=== PATIENT | female | born 1980 | race African-American/Black ===

== ENCOUNTER 2024-11-14 13:38 | Outpatient (AMB) | payer OTHER, SELFPAY ==
--- NOTE | 2024-11-14 13:42 | A.OFFVIS_ITS ---
Vital Signs 11/14/24 13:45 Height 5 ft 6 in Weight 164 lb 7.437 oz BMI 26.5 BP 136/80 Blood Pressure Location Lt brachial Position Sitting Pulse 90 Pulse Source Pulse Oximeter Pulse Oximetry (%) 99 Oxygen Delivery Method Room Air Intake Visit Reasons: RA Intake Note: Patient presents for follow up on RA. Allergies No Known Allergies Allergy (Verified 11/14/24 13:46) HPI HPI RA: Details: SHe is doing well. No recent infections. [facility] Medical History (Updated 11/15/24 @ 21:47 by Chico Acosta MD) Rheumatoid arthritis Surgical History (Updated 11/14/24 @ 13:50 by Rina Abad CMA) No pertinent past surgical history Social History (Updated 11/14/24 @ 13:50 by Rina Abad CMA) Alcohol intake: never Patient Tobacco Use Status: Never used Tobacco Review of Systems Const All systems reviewed & are unremarkable except as noted in HPI and below Physical Exam Vital Signs: Last Vital Signs Pulse 90 11/14/24 13:45 BP 136/80 11/14/24 13:45 Pulse Ox 99 11/14/24 13:45 Oxygen Delivery Method Room Air 11/14/24 13:45 BMI result Body Mass Index 26.5 Const Other: General: Comfortable CVS: RRR Respiratory: clear to auscultation bilaterally. Good respiratory effort Skin: No lesions seen MSK:No tendernes or synovitis present. Good ROM of UE and LE. Assessment & Plan Assessment & Plan (1) Rheumatoid arthritis: Comment: controlled on monotherapy with methotrexate Code(s): M06.9 - Rheumatoid arthritis, unspecified Category: Medical Qualifiers: Rheumatoid arthritis location: multiple sites Rheumatoid factor presence: unspecified presence Qualified Code(s): M06.9 - Rheumatoid arthritis, unspecified Plan: Labs for disease and drug monitoring on high-risk medication ordered. Patient has labs done with neurology every 3 months for drug monitoring and requested lab requisition to have them done at the same time After lab results are back, I will send prescription for methotrexate 20 mg once weekly Continue folic acid 1 mg daily [facility]ing [facility] Return to clinic in 3 months (2) Other press tender long goods (current) drug therapy: Code(s): Z79.899 - Other jail (current) drug therapy Category: Medical Plan: See above Orders: Orders Hepatitis B,C Profile 11/14/24 Z79.899 - Other jail (current) drug therapy T Spot TB 11/14/24 Z79.899 - Other press tender long goods (current) drug therapy Alanine Aminotransferase 11/14/24 Z79.60 - termite control service representative (current) use of unspecified immunomodulators and immunosuppressants Complete Blood Count Auto Diff 11/14/24 Z79.60 - care home (current) use of unspecified immunomodulators and immunosuppressants Creatinine 11/14/24 Z79.60 - termite control service representative (current) use of unspecified immunomodulators and immunosuppressants Alanine Aminotransferase 11/14/24 Z79.60 - termite control service representative (current) use of unspecified immunomodulators and immunosuppressants Alanine Aminotransferase 02/12/25 Z79.60 - care home (current) use of unspecified immunomodulators and immunosuppressants Alanine Aminotransferase 05/13/25 Z79.60 - care home (current) use of unspecified immunomodulators and immunosuppressants Alanine Aminotransferase 08/11/25 Z79.60 - termite control service representative (current) use of unspecified immunomodulators and immunosuppressants Alanine Aminotransferase 05/08/26 Z79.60 - termite control service representative (current) use of unspecified immunomodulators and immunosuppressants Alanine Aminotransferase 08/06/26 Z79.60 - care home (current) use of unspecified immunomodulators and immunosuppressants Erythrocyte Sedimentation Rate 02/12/25 Z79.899 - Other jail (current) drug therapy Erythrocyte Sedimentation Rate 05/13/25 Z79.899 - Other jail (current) drug therapy Erythrocyte Sedimentation Rate 11/09/25 Z79.899 - Other jail (current) drug therapy Erythrocyte Sedimentation Rate 02/07/26 Z79.899 - Other press tender long goods (current) drug therapy Erythrocyte Sedimentation Rate 05/08/26 Z79.899 - Other press tender long goods (current) drug therapy Erythrocyte Sedimentation Rate 08/06/26 Z79.899 - Other press tender long goods (current) drug therapy Creatinine 11/14/24 Z79.60 - termite control service representative (current) use of unspecified immunomodulators and immunosuppressants Creatinine 08/11/25 Z79.60 - care home (current) use of unspecified immunomodulators and immunosuppressants Creatinine 11/09/25 Z79.60 - termite control service representative (current) use of unspecified immunomodulators and immunosuppressants Creatinine 05/08/26 Z79.60 - care home (current) use of unspecified immunomodulators and immunosuppressants Creatinine 08/06/26 Z79.60 - care home (current) use of unspecified immunomodulators and immunosuppressants Complete Blood Count Auto Diff 02/12/25 Z79.60 - termite control service representative (current) use of unspecified immunomodulators and immunosuppressants Complete Blood Count Auto Diff 05/13/25 Z79.60 - termite control service representative (current) use of unspecified immunomodulators and immunosuppressants Complete Blood Count Auto Diff 05/08/26 Z79.60 - termite control service representative (current) use of unspecified immunomodulators and immunosuppressants Complete Blood Count Auto Diff 08/06/26 Z79.60 - termite control service representative (current) use of unspecified immunomodulators and immunosuppressants C Reactive Protein 11/14/24 Z79.899 - Other jail (current) drug therapy C Reactive Protein 02/12/25 Z79.899 - Other press tender long goods (current) drug therapy C Reactive Protein 08/11/25 Z79.899 - Other jail (current) drug therapy C Reactive Protein 02/07/26 Z79.899 - Other press tender long goods (current) drug therapy C Reactive Protein 08/06/26 Z79.899 - Other press tender long goods (current) drug therapy Aspartate Amino Transferase 11/14/24 Z79.60 - termite control service representative (current) use of unspecified immunomodulators and immunosuppressants Aspartate Amino Transferase 02/12/25 Z79.60 - care home (current) use of unspecified immunomodulators and immunosuppressants Aspartate Amino Transferase 11/09/25 Z79.60 - care home (current) use of un specified immunomodulators and immunosuppressants Aspartate Amino Transferase 02/07/26 Z79.60 - termite control service representative (current) use of unspecified immunomodulators and immunosuppressants Erythrocyte Sedimentation Rate 11/14/24 Z79.899 - Other jail (current) drug therapy C Reactive Protein 11/14/24 Z79.899 - Other jail (current) drug therapy Aspartate Amino Transferase 11/14/24 Z79.60 - care home (current) use of unspecified immunomodulators and immunosuppressants Alanine Aminotransferase 11/09/25 Z79.60 - care home (current) use of unspecified immunomodulators and immunosuppressants Alanine Aminotransferase 02/07/26 Z79.60 - care home (current) use of unspecified immunomodulators and immunosuppressants Erythrocyte Sedimentation Rate 11/14/24 Z79.899 - Other jail (current) drug therapy Erythrocyte Sedimentation Rate 08/11/25 Z79.899 - Other press tender long goods (current) drug therapy Creatinine 02/12/25 Z79.60 - termite control service representative (current) use of unspecified i mmunomodulators and immunosuppressants Creatinine 05/13/25 Z79.60 - care home (current) use of unspecified immunomodulators and immunosuppressants Creatinine 02/07/26 Z79.60 - care home (current) use of unspecified immunomodulators and immunosuppressants Complete Blood Count Auto Diff 11/14/24 Z79.60 - termite control service representative (current) use of unspecified immunomodulators and immunosuppressants Complete Blood Count Auto Diff 08/11/25 Z79.60 - termite control service representative (current) use of unspecified immunomodulators and immunosuppressants Complete Blood Count Auto Diff 11/09/25 Z79.60 - termite control service representative (current) use of unspecified immunomodulators and immunosuppressants Complete Blood Count Auto Diff 02/07/26 Z79.60 - care home (current) use of unspecified immunomodulators and immunosuppressants C Reactive Protein 05/13/25 Z79.899 - Other press tender long goods (current) drug therapy C Reactive Protein 11/09/25 Z79.899 - Other press tender long goods (current) drug therapy C Reactive Protein 05/08/26 Z79.899 - Other press tender long goods (current) drug therapy Aspartate Amino Transferase 05/13/25 Z79.60 - care home (current) use of unspecified immunomodulators and immunosuppressants Aspartate Amino Transferase 08/11/25 Z79.60 - termite control service representative (current) use of unspecified immunomodulators and immunosuppressants Aspartate Amino Transferase 05/08/26 Z79.60 - termite control service representative (current) use of unspecified immunomodulators and immunosuppressants Aspartate Amino Transferase 08/06/26 Z79.60 - care home (current) use of uns pecified immunomodulators and immunosuppressants Medications: New folic acid 1 mg PO DAILY 90 tabs 3RF Coding Level of Care Code Est Pt Level 4 (71108) Complex EM visit Add On G2211 Diagnoses Rheumatoid arthritis involving multiple sites, unspecified whether rheumatoid factor present M06.9 Rheumatoid arthritis location: multiple sites Rheumatoid factor presence: unspecified presence Other press tender long goods (current) drug therapy Z79.899
--- NOTE | 2024-11-14 13:42 | MHC.OFFVIS ---
Vital Signs 11/14/24 13:45 Height 5 ft 6 in Weight 164 lb 7.437 oz BMI 26.5 BP 136/80 Blood Pressure Location Lt brachial Position Sitting Pulse 90 Pulse Source Pulse Oximeter Pulse Oximetry (%) 99 Oxygen Delivery Method Room Air Intake Visit Reasons: RA Intake Note: Patient presents for follow up on RA. Allergies No Known Allergies Allergy (Verified 11/14/24 13:46) HPI HPI RA: Details: SHe is doing well. No recent infections. [facility] Medical History (Updated 11/15/24 @ 21:47 by Chico Acosta MD) Rheumatoid arthritis Surgical History (Updated 11/14/24 @ 13:50 by Rina Abad CMA) No pertinent past surgical history Social History (Updated 11/14/24 @ 13:50 by Rina Abad CMA) Alcohol intake: never Patient Tobacco Use Status: Never used Tobacco Review of Systems Const All systems reviewed & are unremarkable except as noted in HPI and below Physical Exam Vital Signs: Last Vital Signs Pulse 90 11/14/24 13:45 BP 136/80 11/14/24 13:45 Pulse Ox 99 11/14/24 13:45 Oxygen Delivery Method Room Air 11/14/24 13:45 BMI result Body Mass Index 26.5 Const Other: General: Comfortable CVS: RRR Respiratory: clear to auscultation bilaterally. Good respiratory effort Skin: No lesions seen MSK:No tendernes or synovitis present. Good ROM of UE and LE. Assessment & Plan Assessment & Plan (1) Rheumatoid arthritis: Comment: controlled on monotherapy with methotrexate Code(s): M06.9 - Rheumatoid arthritis, unspecified Category: Medical Qualifiers: Rheumatoid arthritis location: multiple sites Rheumatoid factor presence: unspecified presence Qualified Code(s): M06.9 - Rheumatoid arthritis, unspecified Plan: Labs for disease and drug monitoring on high-risk medication ordered. Patient has labs done with neurology every 3 months for drug monitoring and requested lab requisition to have them done at the same time After lab results are back, I will send prescription for methotrexate 20 mg once weekly Continue folic acid 1 mg daily [facility]ing [facility] Return to clinic in 3 months (2) Other long term care phlebotomist (current) drug therapy: Code(s): Z79.899 - Other senior care (current) drug therapy Category: Medical Plan: See above Orders: Orders Hepatitis B,C Profile 11/14/24 Z79.899 - Other senior care (current) drug therapy T Spot TB 11/14/24 Z79.899 - Other long term care phlebotomist (current) drug therapy Alanine Aminotransferase 11/14/24 Z79.60 - salvage determiner (current) use of unspecified immunomodulators and immunosuppressants Complete Blood Count Auto Diff 11/14/24 Z79.60 - custodial (current) use of unspecified immunomodulators and immunosuppressants Creatinine 11/14/24 Z79.60 - salvage determiner (current) use of unspecified immunomodulators and immunosuppressants Alanine Aminotransferase 11/14/24 Z79.60 - salvage determiner (current) use of unspecified immunomodulators and immunosuppressants Alanine Aminotransferase 02/12/25 Z79.60 - custodial (current) use of unspecified immunomodulators and immunosuppressants Alanine Aminotransferase 05/13/25 Z79.60 - custodial (current) use of unspecified immunomodulators and immunosuppressants Alanine Aminotransferase 08/11/25 Z79.60 - salvage determiner (current) use of unspecified immunomodulators and immunosuppressants Alanine Aminotransferase 05/08/26 Z79.60 - salvage determiner (current) use of unspecified immunomodulators and immunosuppressants Alanine Aminotransferase 08/06/26 Z79.60 - custodial (current) use of unspecified immunomodulators and immunosuppressants Erythrocyte Sedimentation Rate 02/12/25 Z79.899 - Other senior care (current) drug therapy Erythrocyte Sedimentation Rate 05/13/25 Z79.899 - Other senior care (current) drug therapy Erythrocyte Sedimentation Rate 11/09/25 Z79.899 - Other senior care (current) drug therapy Erythrocyte Sedimentation Rate 02/07/26 Z79.899 - Other long term care phlebotomist (current) drug therapy Erythrocyte Sedimentation Rate 05/08/26 Z79.899 - Other long term care phlebotomist (current) drug therapy Erythrocyte Sedimentation Rate 08/06/26 Z79.899 - Other long term care phlebotomist (current) drug therapy Creatinine 11/14/24 Z79.60 - salvage determiner (current) use of unspecified immunomodulators and immunosuppressants Creatinine 08/11/25 Z79.60 - custodial (current) use of unspecified immunomodulators and immunosuppressants Creatinine 11/09/25 Z79.60 - salvage determiner (current) use of unspecified immunomodulators and immunosuppressants Creatinine 05/08/26 Z79.60 - custodial (current) use of unspecified immunomodulators and immunosuppressants Creatinine 08/06/26 Z79.60 - custodial (current) use of unspecified immunomodulators and immunosuppressants Complete Blood Count Auto Diff 02/12/25 Z79.60 - salvage determiner (current) use of unspecified immunomodulators and immunosuppressants Complete Blood Count Auto Diff 05/13/25 Z79.60 - salvage determiner (current) use of unspecified immunomodulators and immunosuppressants Complete Blood Count Auto Diff 05/08/26 Z79.60 - salvage determiner (current) use of unspecified immunomodulators and immunosuppressants Complete Blood Count Auto Diff 08/06/26 Z79.60 - salvage determiner (current) use of unspecified immunomodulators and immunosuppressants C Reactive Protein 11/14/24 Z79.899 - Other senior care (current) drug therapy C Reactive Protein 02/12/25 Z79.899 - Other long term care phlebotomist (current) drug therapy C Reactive Protein 08/11/25 Z79.899 - Other senior care (current) drug therapy C Reactive Protein 02/07/26 Z79.899 - Other long term care phlebotomist (current) drug therapy C Reactive Protein 08/06/26 Z79.899 - Other long term care phlebotomist (current) drug therapy Aspartate Amino Transferase 11/14/24 Z79.60 - salvage determiner (current) use of unspecified immunomodulators and immunosuppressants Aspartate Amino Transferase 02/12/25 Z79.60 - custodial (current) use of unspecified immunomodulators and immunosuppressants Aspartate Amino Transferase 11/09/25 Z79.60 - custodial (current) use of unspecified immunomodulators and immunosuppressants Aspartate Amino Transferase 02/07/26 Z79.60 - custodial (current) use of unspecified immunomodulators and immunosuppressants Erythrocyte Sedimentation Rate 11/14/24 Z79.899 - Other long term care phlebotomist (current) drug therapy C Reactive Protein 11/14/24 Z79.899 - Other senior care (current) drug therapy Aspartate Amino Transferase 11/14/24 Z79.60 - salvage determiner (current) use of unspecified immunomodulators and immunosuppressants Alanine Aminotransferase 11/09/25 Z79.60 - salvage determiner (current) use of unspecified immunomodulators and immunosuppressants Alanine Aminotransferase 02/07/26 Z79.60 - custodial (current) use of unspecified immunomodulators and immunosuppressants Erythrocyte Sedimentation Rate 11/14/24 Z79.899 - Other senior care (current) drug therapy Erythrocyte Sedimentation Rate 08/11/25 Z79.899 - Other long term care phlebotomist (current) drug therapy Creatinine 02/12/25 Z79.60 - custodial (current) use of unspecified immunomodulators and immunosuppressants Creatinine 05/13/25 Z79.60 - custodial (current) use of unspecified immunomodulators and immunosuppressants Creatinine 02/07/26 Z79.60 - custodial (current) use of unspecified immunomodulators and immunosuppressants Complete Blood Count Auto Diff 11/14/24 Z79.60 - custodial (current) use of unspecified immunomodulators and immunosuppressants Complete Blood Count Auto Diff 08/11/25 Z79.60 - salvage determiner (current) use of unspecified immunomodulators and immunosuppressants Complete Blood Count Auto Diff 11/09/25 Z79.60 - custodial (current) use of unspecified immunomodulators and immunosuppressants Complete Blood Count Auto Diff 02/07/26 Z79.60 - salvage determiner (current) use of unspecified immunomodulators and immunosuppressants C Reactive Protein 05/13/25 Z79.899 - Other senior care (current) drug therapy C Reactive Protein 11/09/25 Z79.899 - Other long term care phlebotomist (current) drug therapy C Reactive Protein 05/08/26 Z79.899 - Other long term care phlebotomist (current) drug therapy Aspartate Amino Transferase 05/13/25 Z79.60 - custodial (current) use of unspecified immunomodulators and immunosuppressants Aspartate Amino Transferase 08/11/25 Z79.60 - salvage determiner (current) use of unspecified immunomodulators and immunosuppressants Aspartate Amino Transferase 05/08/26 Z79.60 - salvage determiner (current) use of unspecified immunomodulators and immunosuppressants Aspartate Amino Transferase 08/06/26 Z79.60 - salvage determiner (current) use of unspecified immunomodulators and immunosuppressants Medications: New folic acid 1 mg PO DAILY 90 tabs 3RF Coding Level of Care Code Est Pt Level 4 (06559) Complex EM visit Add On G2211 Diagnoses Rheumatoid arthritis involving multiple sites, unspecified whether rheumatoid factor present M06.9 Rheumatoid arthritis location: multiple sites Rheumatoid factor presence: unspecified presence Other long term care phlebotomist (current) drug therapy Z79.899
[2024-11-14 13:45] VITALS: BP 136/80; PULSE 90; O2SAT 99; BMI 26.5
--- OUTSIDE RECORDS SUMMARY | 2024-11-14 14:56 | XMS_ITS ---
Author Name [facility] Organization Unknown History of Medication Use Medication Directions Dispensed Refills Start Date End Date Stat estradiol (CLIMARA) 0.05 MG/24HR Place 1 patch onto the skin once a week. 09/05/2024 9 active DULoxetine (CYMBALTA) DR capsule 30 mg 1 p.o. daily x2 weeks then increase to 2 p.o. daily 04/16/2024 active gabapentin (NEURONTIN) 100 MG capsule Take 1 capsule (100 mg total) by mouth. 04/16/2024 active sodium chloride 0.9% bolus (NS) 500 mL 500 mL, Intravenous, at 500 mL/hr, Once, On Mon08/23/23 at 1115, For 1 doseAdminister after natalizumab (TYSABRI) infusion completed. 04/16/2024 completed ergocalciferol (VITAMIN D2) capsule 17479 units Take 1 capsule (50,000 Units total) by mouth once a week. 02/22/2024 active folic acid (FOLVITE) tablet 1 mg Take 1 tablet (1 mg total) by mouth daily. 02/22/2024 active etonogestrel (Nexplanon) 68 MG IMPL subcutaneous implant 68 mg by Subdermal route once. 02/22/2024 active LORazepam (Ativan) 1 MG tablet Take 1 tablet (1 mg total) by mouth every 6 (six) hours as needed (MRI 0NE TO 2 TABLETS MAXIMUM Someone have drive you). 02/22/2024 active baclofen (LIORESAL) 5 MG tablet 1-3 tabs po in am and 1-2 tabs po hs 02/22/2024 active baclofen (LIORESAL) 5 MG tablet Take 1 tablet (5 mg total) by mouth 3 (three) times a day. 02/22/2024 active [place]-3 Fatty Acids (Fish Oil) 1000 MG CAPS Take by mouth. 02/22/2024 active methotrexate 2.5 MG tablet Take 5 tablets (12.5 mg total) by mouth once a week. 02/22/2024 active natalizumab (TYSABRI) 300 mg in sodium chloride (NS) 0.9 % 100 mL IVPB 300 mg, Intravenous, Administer over 1 Hours, Once, On Rosa 02/15/24 at 1230, For 1 dose 02/22/2024 completed Problems Problem Status Onset Date Problem Type Date of Resoluti on Source Multiple sclerosis active 2022-11-16 ProblemAct [id number]
== END 2024-11-14 14:36 | disposition home or self-care (01) ==
PROVIDERS: Visit Provider Internal Medicine Rheumatology
DX: M06.9 Rheumatoid arthritis, unspecified (principal); Z79.899 Other long term (current) drug therapy
CPT/HCPCS: 99214; G2211

== ENCOUNTER → 2024-11-14 13:38 | Outpatient (BNVA) | payer OTHER, SELFPAY | PROVIDERS: Visit Provider Internal Medicine Rheumatology | DX: M06.9 Rheumatoid arthritis, unspecified (principal); Z79.899 Other long term (current) drug therapy | CPT/HCPCS: 99212 ==

== ENCOUNTER 2025-01-23 09:05 | Outpatient (AMB) | payer OTHER, SELFPAY ==
[2025-01-23 09:07] VITALS: BP 120/90; PULSE 78; O2SAT 98; BMI 26.4
--- NOTE | 2025-01-23 09:07 | MHC.OFFVIS ---
Vital Signs 01/23/25 09:07 Height 5 ft 6 in Weight 163 lb 5.8 oz BMI 26.4 BP 120/90 H Blood Pressure Location Lt brachial Position Sitting Pulse 78 Pulse Source Pulse Oximeter Pulse Oximetry (%) 98 Oxygen Delivery Method Room Air Intake Visit Reasons: Follow Up 3mo Intake Note: Patient presents for follow up on RA. Allergies No Known Allergies Allergy (Verified 01/23/25 09:07) HPI HPI Follow Up 3mo: Details: She had swelling of left eye. Denies fevers, rash, discharge, URI symptoms. She is on amoxicillin with resolution of facial swelling. She held MTX. She continues to have bilateral knee swelling. She completed physical therapy. [facility] Medical History Rheumatoid arthritis Surgical History No pertinent past surgical history Social History Alcohol intake: never Patient Tobacco Use Status: Never used Tobacco Review of Systems Const All systems reviewed & are unremarkable except as noted in HPI and below Physical Exam Vital Signs: Last Vital Signs Pulse 78 01/23/25 09:07 BP 120/90 H 01/23/25 09:07 Pulse Ox 98 01/23/25 09:07 Oxygen Delivery Method Room Air 01/23/25 09:07 BMI result Body Mass Index 26.4 Const Other: General: Comfortable CVS: RRR Respiratory: clear to auscultation bilaterally. Good respiratory effort Skin: No lesions seen MSK: No tendernes of any joint. She has mild effusions of bilateral knees. Pain with palpation of left knee along joint line. Normal ROM of UE and LE. Office Procedures AMB Joint Injection/Aspiration Joint Injection/Aspiration Details: Left knee joint Prep: site was prepped using aseptic technique Arthrocentesis: 3 cc of 1% lidocaine was injected into the left knee with 25 gauge 1-1/2 inch needle. Using 18 gauge 1-1/2 inch needle 1 drop of serosanguineous synovial fluid was aspirated. Using same needle 40 mg of Kenalog, with 1 mL of 1% plain lidocaine was injected into the left knee. Procedure: The patient tolerated the procedure well. Postprocedure protocol was discussed with patient. Coding 55554 - Large joint Procedure code (CPT) selection complete Office Meds lidocaine (PF) 10 mg/mL (1 %) injection solution Performing Provider: Chico Acosta MD Performing Location: [facility] Administered by: Chico Acosta MD on 01/23/25 21:58 Dose Route Admin Location Dispensed Lot Number Expiration Date [facility] [employer] 10 mg Infiltration 2 mL [id number] [facility] Kenalog 40 mg/mL suspension for injection Performing Provider: Chico Acosta MD Performing Location: [facility] Administered by: Chico Acosta MD on 01/23/25 21:58 Dose Route Admin Location Dispensed Lot Number Expiration Date [facility] [employer] 40 mg intra-articular 1 mL AP [id number] [employer] Assessment & Plan Assessment & Plan (1) Rheumatoid arthritis: Comment: controlled on monotherapy with methotrexate. Recently MTX was held due to amoxicillin use for facial swelling ?periorbital swelling. 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 Left knee arthrocentesis was was attempted but only 1 drop of serosanguineous synovial fluid was aspirated. Left knee was then injected with cortisone injection. Code(s): M06.9 - Rheumatoid arthritis, unspecified Category: Medical Qualifiers: Rheumatoid arthritis location: multiple sites Rheumatoid factor presence: unspecified presence Qualified Code(s): M06.9 - Rheumatoid arthritis, unspecified Plan: Labs for disease and drug monitoring on high-risk medication ordered Continue methotrexate 20 mg once weekly Continue folic acid 1 mg daily [facility] request Return to clinic in 3 months or sooner if needed for right knee cortisone injection (2) Other terminal worker (current) drug therapy: Code(s): Z79.899 - Other terminal worker (current) drug therapy Category: Medical Plan: See above Orders: Orders Alanine Aminotransferase Today Z79.60 - alf (current) use of unspecified immunomodulators and immunosuppressants C Reactive Protein Today Z79.899 - Other [facility] (current) drug therapy AMB Joint Injection/Aspiration Today M06.9 - Rheumatoid arthritis, unspecified Complete Blood Count Auto Diff Today Z79.60 - alf (current) use of unspecified immunomodulators and immunosuppressants Aspartate Amino Transferase Today Z79.60 - termination clerk (current) use of unspecified immunomodulators and immunosuppressants Creatinine Today Z79.60 - alf (current) use of unspecified immunomodulators and immunosuppressants Erythrocyte Sedimentation Rate Today Z79.899 - Other terminal worker (current) drug therapy Medications: New Kenalog (triamcinolone acetonide) 40 mg intra-articular ONCE 1 mL 0RF NS M06.9 - Rheumatoid arthritis, unspecified lidocaine (PF) 10 mg Infiltration ONCE 1 mL 0RF M06.9 - Rheumatoid arthritis, unspecified Coding Level of Care Code Est Pt Level 5 (62333) Complex EM visit Add On G2211 Diagnoses Rheumatoid arthritis involving multiple sites, unspecified whether rheumatoid factor present M06.9 Rheumatoid arthritis location: multiple sites Rheumatoid factor presence: unspecified presence Other [facility] (current) drug therapy Z79.899 CPT Codes Coding - 16911 Large joint: 97957 - Large joint ([id number]) Time Spent (min) 45
--- OUTSIDE RECORDS SUMMARY | 2025-01-23 10:26 | XMS_ITS | Clinical Summary ---
Author Organization [facility] Address [address] [place] [address] Care Team Providers Care Hospital Pharmacist Name Role Phone Chet Mantilla MD Primary Care Provider [phone] Allergies No known active allergies Medications Medication Sig Dispensed Refills Start Date End Date Status methotrexate 2.5 MG tablet Take 5 tablets (12.5 mg total) by mouth once a week. 0 Active folic acid (FOLVITE) tablet 1 mg Take 1 tablet (1 mg total) by mouth daily. 0 Active [place]-3 Fatty Acids (Fish Oil) 1000 MG CAPS Take by mouth. 0 Active etonogestrel (Nexplanon) 68 MG IMPL subcutaneous implant 68 mg by Subdermal route once. 0 Active ergocalciferol (VITAMIN D2) capsule 78277 units Take 1 capsule (50,000 Units total) by mouth once a week. 4 capsule 12 03/14/2023 Active baclofen (LIORESAL) 5 MG tablet 1-3 tabs po in am and 1-2 tabs po hs 180 tablet 3 01/04/2024 Active LORazepam (Ativan) 1 MG tablet Take 1 tablet (1 mg total) by mouth every 6 (six) hours as needed (MRI 0NE TO 2 TABLETS MAXIMUM Someone have drive you). 4 tablet 0 01/04/2024 Active baclofen (LIORESAL) 5 MG tablet Take 1 tablet (5 mg total) by mouth 3 (three) times a day. 0 11/15/2023 Active estradiol (CLIMARA) 0.05 MG/24HR Place 1 patch onto the skin once a week. 0 Active Active Problems Problem Noted Date Diagnosed Date Multiple sclerosis 11/16/2022 Family History Medical History Relation Name Comments No Sig Med Hx Father No Sig Med Hx Mother Multiple sclerosis Neg Hx Relation Name Status Comments Father Alive Mother Alive Social History Tobacco Use Types Packs/Day Years Used Date Smoking Tobacco: Never Passive Smoke Exposure: Never Smokeless Tobacco: Never Tobacco Cessation:Counseling Given: Not Answered Alcohol Use Standard Drinks/Week Comments Not Currently 0 (1 standard drink = 0.6 oz pur e alcohol) Sex and Gender Information Value Date Recorded Sex Assigned at Female 09/20/2023 11:27 AM EST Gender Identity Not on file Sexual Orientation Not on file Job Start Date Occupation Industry Not on file Not on file Not on file Last Filed Vital Signs Vital Sign Reading Time Taken Comments Blood Pressure 121/76 08/29/2024 11:41 AM EDT Pulse 88 08/29/2024 11:41 AM EDT Temperature 36.3 ??C (97.3 ??F) 08/29/2024 11:41 AM E DT Respiratory Rate 18 08/29/2024 11:41 AM EDT Oxygen Saturation 97% 08/29/2024 11:41 AM EDT Inhaled Oxygen Concentration - - Weight 70.5 kg (155 lb 6.4 oz) 08/01/2024 11:49 AM EDT Height 167.6 cm (5' 6 ) 08/01/2024 11:49 AM EDT Body Mass Index 25.08 08/01/2024 11:49 AM EDT Plan of Treatment Health Maintenance Due Date Last Done Comments Hepatitis C Screening 1980 Depression Screening 1992 BMI Counseling 1998 Preventative Health Evaluation 1998 Cervical Cancer Screening (Pap Smear) 2001 Hepatitis B Vaccines (2 of 3 - 19+ 3-dose series) 07/18/2002 06/20/2002 DTap / Tdap / Td (2 - Td or Tdap) 10/25/2023 10/25/2013, 06/20/2002 COVID-19 Vaccine (3 - 2023-2 5 season) 2024 10/18/2021, 09/24/2021 Influenza Vaccine (#1) 2024 09/04/2008 Pneumococcal Vaccine Aged Out No long er eligible based on patient's age to complete this topic RSV Ped < 20 months Aged Out No longe r eligible based on patient's age to complete this topic Care Teams Hospital Pharmacist Relationship Specialty Start Date End Date Chet Mantilla MD [address] [place] [phone] PCP - General Internal Medicine 08/31/22
--- OUTSIDE RECORDS SUMMARY | 2025-01-23 10:26 | XMS_ITS | Encounter Summary ---
Author Organization [facility] [place] [address] Care Team Providers Care Retail Client Manager Name Role Phone Chet Mantilla MD Primary Care Provider [phone] Encounter Details Date Type Department Care Team (Latest Contact Info) Description 04/11/2024 7:58 AM EDT Hospital Encounter TH HISTORIC ENCOUNTERS [facility] CONVERSION ONLY Multiple sclerosis (CMS/HCC) Social History Tobacco Use Types Packs/Day Years [...] Care Team (Late st Contact Info) Description 02/13/2025 8:00 AM EDT Appointment [facility] [address] [phone] 03/13/2025 8:00 AM EDT Appointment [facility] [address] [phone] 04/10/2025 8:00 AM EDT Appointment [facility] [address] [facility] [address] [place] [address] 04/10/2025 8:00 AM EDT Office Visit [facility] [place] [address] [place] [address] Clint Yeh MD [address] [place] [address] 05/08/2025 8:00 AM EDT Appointment [facility] [place] [address] [place] [address] 06/05/2025 8:00 AM EDT Appointment [facility] [place] [address] [place] [phone] 07/03/2025 8:00 AM EDT Appointment [facility] [place] [address] [phone] 07/31/2025 8:00 AM EDT Appointment [facility] [place] [address] [phone] 08/28/2025 8:00 AM EDT Appointment [facility] [place] [address] [phone] 09/25/2025 8:00 AM EST Appointment [facility] [address] [phone] documented as of this encounter Visit Diagnoses Diagnosis Multiple sclerosis (CMS/HCC) Multiple sclerosis documented in this encounter Care Teams Retail Client Manager Relationship Specialty Start Date End Date Chet Mantilla MD [address] [place], [place] PCP - General Internal Medicine 08/31/22 documented as of this encounter
--- OUTSIDE RECORDS SUMMARY | 2025-01-23 10:26 | XMS_ITS | Encounter Summary ---
Author Organization [facility] [place] [address] Care Team Providers Care Play Therapist Name Role Phone Chet Mantilla MD Primary Care Provider Encounter Details Date Type Department Care Team [...] Department Care Team (Late Contact Info) Description 02/13/2025 8:00 AM EDT Appointment [facility] [address] [phone] 03/13/2025 8:00 AM EDT Appointment [facility] [place] [address] [phone] 04/10/2025 8:00 AM EDT Appointment [facility] [address] [phone] 04/10/2025 8:00 AM EDT Office Visit [facility] [place] [address] [phone] Clint Yeh MD [address] [phone] 05/08/2025 8:00 AM EDT Appointment [facility] [address] [phone] 06/05/2025 8:00 AM EDT Appointment [facility] [address] [phone] 07/03/2025 8:00 AM EDT Appointment [facility] [address] [phone] 07/31/2025 8:00 AM EDT Appointment [facility] [address] [phone] 08/28/2025 8:00 AM EDT Appointment [facility] [address] [phone] 09/25/2025 8:00 AM EST Appointment [facility] [address] [phone] documented as of this encounter Visit Diagnoses Not on filedocumented in this encounter Care Teams Play Therapist Relationship Specialty Start Date End Date Chet Mantilla MD [address] [place] [address] PCP - General Internal Medicine 08/31/22 documented as of this encounter
--- OUTSIDE RECORDS SUMMARY | 2025-01-23 10:26 | XMS_ITS | Clinical Summary ---
Author Organization 175 [facility] Address [address] [place] [address] Phone Care Team Providers Care Family And Consumer Sciences Teacher Name Role Phone Chet Mantilla MD Primary Care Provider [phone] Allergies No known active allergies Medications omega-3 fatty acids 1,000 mg capsule Take 1 tablet by mouth 1 (one) time each day. Active baclofen (LIORESAL) 5 mg tablet Take 1 tablet (5 mg total) by mouth 1 (one) time each day. 1-3 tabs po in am and 1-2 tabs po hs 11/15/19 24 Active etonogestrel-elut ing contraceptive device (Nexplanon) 68 mg implant subdermal implant 1 each by implant route 1 (one) time. Active folic acid (FOLVITE) 1 mg tablet Take 1 tablet (1 mg total) by mouth 1 (one) time each day. Active methotrexate 2.5 mg tablet Take 5 tablets (12.5 mg total) by mouth 1 (one) time per week Active estradioL (CLIMARA) 0.05 mg/[address] 1 patch on the skin 1 (one) time per week. Active ergocalciferol (VITAMIN D-2) 1,250 mcg (50,000 unit) capsule Take 1 capsule (50,000 Units total) by mouth 1 (one) time per week. 12 capsule 5 12/09/19 25 Active LORazepam (Ativan) 0.5 mg tablet 1 po 1 hour prior to MRI; may repeat 1 tab if needed at time of MRI 5 tablet 03/11/20 25 Active LORazepam (ATIVAN) 1 mg tablet Take 1 tablet (1 mg total) by mouth every 6 hours as needed. needed (MRI 0NE TO 2 TABLETS MAXIMUM Someone have drive you). 06/28/20 23 025 Discontinued Active Problems Problem Noted Date Diagnosed Date Multiple sclerosis 01/22/2024 Encounters Date Type Department Care Team Description 01/20/[address] [address] Alma German PA MRI SCHEDULED 01/17/2025 8:00 AM EST - 01/17/2025 11:59 PM EST Hospital Encounter [facility] [address] Multiple sclerosis (CMS/HCC) (Primary Dx) Discharge Disposition: Home or Self Care 12/19/2024 8:00 AM EST - 12/19/2024 11:59 PM EST Hospital Encounter [facility] [address] Multiple sclerosis (CMS/HCC) (Primary Dx) Discharge Disposition: Home or Self Care 11/21/2024 8:30 AM EST Office Visit [address] [address] Alma German PA Multiple sclerosis (CMS/HCC) (Primary Dx) 11/21/2024 8:12 AM EST - 11/21/2024 11:59 PM EST Hospital Encounter [facility] [address] Multiple sclerosis (CMS/HCC) (Primary Dx) Discharge Disposition: Home or Self Care 11/15/2024 Telephone [facility] [place] [facility] [address] Alma German PA TYDANIEL CHAVD from Last 3 Months Immunizations Name Administration Dates Next Due Pfizer SARS-CoV-2 COVID-19, mRNA, LNP-S, preservative free 10/18/2021,09/24/2021 Surgical History Surgery Date Site/Laterality Comments NO PAST SURGERIES PROCEDURE:NO PAST SURGERIES Medical History Medical History Date Comments MS (multiple sclerosis) ([facility]/HCC) DX:MS (multiple sclerosis) ([facility]) Arthritis DX:Arthritis Family History Medical History Relation Name Comments No Known Problems Father No Known Problems Mother Multiple sclerosis Neg Hx Relation Name Status Comments Father Alive Mother Alive Social History Tobacco Use Types Packs/Day Years Used Date Smoking Tobacco: Never Smokeless Tobacco: Never Tobacco Cessation:Counseling Given: Not Answered Alcohol Use Standard Drinks/Week Comments Not Currently 0 (1 standard drink = 0.6 oz pur e alcohol) Comments Unknown Sex and Gender Information Value Date Recorded Sex Assigned at Not on file Legal Sex Female 6:44 AM EST Gender Identity Not on file Sexual Orientation Not on file Obstetrics History Last Filed Vital Signs Vital Sign Reading Time Taken Comments Blood Pressure 120/83 01/17/2025 9:38 AM EST Pulse 74 01/17/2025 9:38 AM EST Temperature 36.2 ??C (97.2 ??F) 01/17/2025 9:38 AM ES T Respiratory Rate 16 01/17/2025 9:38 AM EST Oxygen Saturation 98% 01/17/2025 9:38 AM EST Inhaled Oxygen Concentration - - Weight 70.5 kg (155 lb 6.4 oz) 08/01/2024 11:49 AM EDT Height 167.6 cm (5' 6 ) 08/01/2024 11:49 AM EDT Body Mass Index 25.08 08/01/2024 11:49 AM EDT Plan of Treatment Upcoming Encounters Date Type Department Care Team (Late st Contact Info) Description 02/13/2025 8:00 AM EDT Appointment [facility] Out[facility] Re[facility] [address] [phone] 03/13/2025 8:00 AM EDT Appointment [facility] [address] [address] 04/10/2025 8:00 AM EDT Appointment [facility] [address] [address] 04/10/2025 8:00 AM EDT Office Visit [facility] [address] [phone] Clint Yeh MD [address] [address] 05/08/2025 8:00 AM EDT Appointment [facility] [place] [address] [phone] 06/05/2025 8:00 AM EDT Appointment [facility] - [address] [address] 07/03/2025 8:00 AM EDT Appointment [facility] [address] [address] 07/31/2025 8:00 AM EDT Appointment [facility] [address] [address] 08/28/2025 8:00 AM EDT Appointment [facility] [address] [address] 09/25/2025 8:00 AM EST Appointment [facility] [address] [phone] Health Maintenance Due Date Last Done Comments Breast Cancer Screening 1980 Cervical Cancer Screening: Pap Smear 2001 COVID-19 Vaccine (3 - Pfizer risk series) 11/15/2021 10/18/2021, 09/24/2021 Depression Screening 10/16/2022 HIV Screening 10/16/2022 Social Influencers of Health Screening 10/16/2022 DTaP,Tdap,and Td Vaccines (3 - Td or Tdap) 10/25/2023 10/25/2013, 06/20/2002 Influenza Vaccine (#1) 2024 09/04/2008 MMR Vaccines Aged Out 02/16/2017, 02/14/2011 No lo nger eligible based on patient's age to complete this topic Hepatitis B Vaccines Completed 06/07/2024, 02/16/2017, 02/14/2011, Additional history exists Hepatitis C Screening Completed 11/21/2024 HIB Vaccines Aged Out No longer eligi ble based on patient's age to complete this topic HPV Vaccines Aged Out No longer eligi ble based on patient's age to complete this topic Hepatitis A Vaccines Aged Out No long er eligible based on patient's age to complete this topic IPV Vaccines Aged Out No longer eligi ble based on patient's age to complete this topic Meningococcal ACWY Vaccine Aged Out N o longer eligible based on patient's age to complete this topic Meningococcal B Vacine Aged Out No lo nger eligible based on patient's age to complete this topic Pneumococcal Vaccine: Pediatrics (0 to 5 Years) and At-Risk Patients (6 to 64 Years) Aged Out No longer eligible based on patient's age to complete this topic RSV Immunization Patients Under 20 months Aged Out No longer eligible based on patient's age to complete this topic Varicella Vaccines Aged Out No longer eligible based on patient's age to complete this topic Procedures Procedure Name Priority Date/Time Associated Diagnosis Comments MALDONADO URINE CULTURE TUBE Routine 11/21/2024 9:59 AM EST Multiple sclerosis (CMS/HCC) URINALYSIS WITH REFLEX MICROSCOPIC AND CULTURE Routine 11/21/2024 9:59 AM EST Multiple sclerosis (CMS/HCC) URINALYSIS WITH REFLEX MICROSCOPIC AND CULTURE Routine 11/21/2024 9:59 AM EST Multiple sclerosis (CMS/HCC) INTERFERON GAMMA INTERPRETATION Routine 11/21/2024 8:46 AM EST Long-term use of immunosuppressant medication Drug therapy INTERFERON GAMMA ANTIGEN 2 Routine 11/21/2024 8:46 AM EST Long-term use of immunosuppressant medication Drug therapy INTERFERON GAMMA ANTIGEN 1 Routine 11/21/2024 8:46 AM EST Long-term use of immunosuppressant medication Drug therapy INTERFERON GAMMA MITOGEN Routine 11/21/2024 8:46 AM EST Long-term use of immunosuppressant medication Drug therapy INTERFERON GAMMA NIL Routine 11/21/2024 8:46 AM EST Long-term use of immunosuppressant medication Drug therapy ALANINE AMINOTRANSFERASE Routine 11/21/2024 8:46 AM EST Long-term use of immunosuppressant medication Drug therapy INTERFERON GAMMA FOR TB, QUALITATIVE Routine 11/21/2024 8:46 AM EST Long-term use of immunosuppressant medication Drug therapy HEPATITIS PANEL, ACUTE WITH REFLEX TO CONFIRMATION Routine 11/21/2024 8:46 AM EST Long-term use of immunosuppressant medication Drug therapy from Last 3 Months Results * Urinalysis with reflex microscopic and culture (11/21/2024 9:59 AM EST) Specific [place] Urine 1.017 1.003 - 1.030 LAB URINALYSIS - AUTOMATED METHOD 11/21/2024 2:[address] [facility] pH, Urine 7.0 5.0 - 8.0 pH LAB URINALYSIS - AUTOMATED METHOD 11/21/2024 2:[address] [facility] Leukocytes, Urine Negative Negative LAB URINALYSIS - AUTOMATED METHOD 11/21/2024 2:[address] [facility] Nitrite, Urine Negative Negative LAB URINALYSIS - AUTOMATED METHOD 11/21/2024 2:[address] [facility] Protein, Urine Negative <=Trace mg/dL LAB URINALYSIS - AUTOMATED METHOD 11/21/2024 2:[address] [facility] Glucose, Urine Negative Negative mg/dL LAB URINALYSIS - AUTOMATED METHOD 11/21/2024 2:[address] [facility] Ketones, Urine Negative Negative mg/dL LAB URINALYSIS - AUTOMATED METHOD 11/21/2024 2:[address] [facility] Urobilinogen, Urine 0.2 0.2 - 1.0 mg/dL LAB URINALYSIS - AUTOMATED METHOD 11/21/2024 2:[address] [facility] Bilirubin, Urine Negative Negative LAB URINALYSIS - AUTOMATED METHOD 11/21/2024 2:[address] [facility] Blood, Urine Negative Negative LAB URINALYSIS - AUTOMATED METHOD 11/21/2024 2:[address] [facility] Urine Urine specimen obtained by clean catch procedure / Unknown Non-blood Collection / Unknown 11/21/2024 9:59 AM EST 11/21/2024 9:59 AM EST Alampreeti Smithi PA LAB URINE ORDERABLES Final R esult [facility] [address] [place] [address], [place] [phone] * Maldonado urine culture tube (11/21/2024 9:59 AM EST) Pathologist [facility] Extra Tube Hold for add-ons. 11/21/2024 3:[address] [facility] Comment:Auto resulted. Urine Urine specimen obtained by clean catch procedure / Unknown Non-blood Collection / Unknown 11/21/2024 9:59 AM EST 11/21/2024 9:59 AM EST Almapreeti Smithi PA LAB URINE ORDERABLES Final R esult [facility] [address] [place] [address], [place] [phone] * Interferon gamma interpretation (11/21/2024 8:46 AM EST) Quantiferon Plus Interpretation Negative Negative LAB CHEMISTRY METHOD 11/22/2024 9:[address] [facility] Blood Venous blood specimen / Unknown Venipuncture / Unknown 11/21/2024 8:46 AM EST 11/21/2024 8:47 AM EST Chico Acosta MD LAB BLOOD ORDERABLES Page l Result [facility] [address] [place] [address], [place] [phone] * Interferon gamma antigen 2 (11/21/2024 8:46 AM EST) Blood Venous blood specimen / Unknown Venipuncture / Unknown 11/21/2024 8:46 AM EST 11/21/2024 8:47 AM EST Chico Acosta MD LAB BLOOD ORDERABLES Page l Result Performing Organization Address [facility]/ZIP Co de Phone Number [facility] [address] [place] [address], [place] [phone] * Inteferon gamma antigen 1 (11/21/2024 8:46 AM EST) Blood Venous blood specimen / Unknown Venipuncture / Unknown 11/21/2024 8:46 AM EST 11/21/2024 8:47 AM EST Chico Acosta MD LAB BLOOD ORDERABLES Page l Result Performing Organization Address [facility]/ZIP Co de Phone Number [facility] [address] [place] [address], [place] [phone] * Interferon gamma mitogen (11/21/2024 8:46 AM EST) Blood Venous blood specimen / Unknown Venipuncture / Unknown 11/21/2024 8:46 AM EST 11/21/2024 8:47 AM EST Chico Acosta MD LAB BLOOD ORDERABLES Page l Result Performing Organization Address [facility]/ZIP Co de Phone Number [facility] [address] [place] [address], [place] [phone] * Interferon gamma NIL (11/21/2024 8:46 AM EST) Blood Venous blood specimen / Unknown Venipuncture / Unknown 11/21/2024 8:46 AM EST 11/21/2024 8:47 AM EST Chico Acosta MD LAB BLOOD ORDERABLES Page l Result Performing Organization Address [facility]/State/ZIP Co de Phone Number [facility] [address] [place] [address], [place] [phone] * Hepatitis panel, acute with reflex to confirmation (11/21/2024 8:46 AM EST) Hepatitis B Surface Ag Negative Negative LAB CHEMISTRY METHOD 11/21/2024 11:42 AM EST [facility] Hepatitis A Antibody IgM Negative Negative LAB CHEMISTRY METHOD 11/21/2024 11:42 AM EST [facility] Hep B Core IgM Negative Negative LAB CHEMISTRY METHOD 11/21/2024 11:42 AM EST [facility] Hepatitis C Antibody Negative Negative LAB CHEMISTRY METHOD 11/21/2024 11:42 AM EST [facility] Blood Venous blood specimen / Unknown Venipuncture / Unknown 11/21/2024 8:46 AM EST 11/21/2024 8:47 AM EST Chico Acosta MD LAB BLOOD ORDERABLES Page l Result Performing Organization Address [facility]/ZIP Co de Phone Number [facility] [address] [place] [address], [place] [phone] * Alanine aminotransferase (11/21/2024 8:46 AM EST) ALT (SGPT) 21 10 - 60 unit/L LAB CHEMISTRY METHOD 11/21/2024 10:51 AM EST [facility] Blood Venous blood specimen / Unknown Venipuncture / Unknown 11/21/2024 8:46 AM EST 11/21/2024 8:47 AM EST Chico Acosta MD LAB BLOOD ORDERABLES Page [email or web address] Result [facility] [address] [place] [address], [place] [phone] from Last 3 Months Insurance [facility] [address] [place] [address] Care Teams Family And Consumer Sciences Teacher Relationship Specialty Start Date End Date Chet Mantilla MD [address] [place], [place] PCP - General Internal Medicine 08/31/22
--- OUTSIDE RECORDS SUMMARY | 2025-01-23 10:26 | XMS_ITS | Encounter Summary ---
Author Organization [facility] Address [address] [place] [address] Care Team Providers Care Wrecker Operator Name Role Phone Chet Mantilla MD Primary Care Provider [phone] Reason for Visit * Episode Based Medications (Routine) - Authorized Specialty Diagnoses / Procedures Referred By Contac t Referred To Contact Infusion Therapy Diagnoses Multiple sclerosis Tysabri Procedures INFUSION Alma German PA 175 [facility] [address] [place] [address] Phone: tel: [facility] [place] [facility] 175 [facility] [address] [place] [address] Phone: tel: fax: Referral ID Status Reason Start Date Expiration Date V isits Requested Visits Authorized [id number] Authorized 12/11/2024 06/08/2025 7 7 Encounter Details Date Type Department Care Team (Latest Contact Info) Description 01/17/2025 8:00 AM EST - 01/17/2025 11:59 PM EST Hospital Encounter [facility] 175 [facility] [address] [place] [address] Multiple sclerosis (CMS/HCC) (Primary Dx) Discharge Disposition: Home or Self Care Social History Tobacco Use Types Packs/Day Years [...] EST Inhaled Oxygen Concentration - - Weight - - Height - - Body Mass Index - - documented in this encounter Medications at Time of Discharge baclofen (LIORESAL) 5 mg tablet Take 1 tablet (5 mg total) by mouth 1 (one) time each day. 1-3 tabs po in am and 1-2 tabs po hs 11/15/2023 ergocalciferol (VITAMIN D-2) 1,250 mcg (50,000 unit) capsule Take 1 capsule (50,000 Units total) by mouth 1 (one) time per week. 12 capsule 5 12/09/2024 estradioL (CLIMARA) 0.05 mg/[address] 1 patch on the skin 1 (one) time per week. etonogestrel-elutin g contraceptive device (Nexplanon) 68 mg implant subdermal implant 1 each by implant route 1 (one) time. folic acid (FOLVITE) 1 mg tablet Take 1 tablet (1 mg total) by mouth 1 (one) time each day. methotrexate 2.5 mg tablet Take 5 tablets (12.5 mg total) by mouth 1 (one) time per week omega-3 fatty acids 1,000 mg capsule Take 1 tablet by mouth 1 (one) time each day. LORazepam (ATIVAN) 1 mg tablet Take 1 tablet (1 mg total) by mouth every 6 hours as needed. needed (MRI 0NE TO 2 TABLETS MAXIMUM Someone have drive you). 06/28/2023 documented as of this encounter Discharge Disposition Disposition Code Departure Means Destination Home or Self Care documented in this encounter Progress Notes * Cecelia rGove RN - 01/17/2025 8:00 AM EST Tysabri infusion # 27 completed. Labs: 10/24/24 Most recent JCV: 0.23 Highest JCV: 0.24 Brain MRI: 01/21/24 Cervical MRI: 01/21/24 LMP: denies Provider: Rao Last appointment: 11/21/24 Next appointment: 04/10/25 Pt. Admit for tysabri infusion. IV start, VSS. Infused per order, tolerated well. No signs of reaction. IV removed, discharge to home. documented in this encounter Plan of Treatment Upcoming Encounters Date Type Department Care Team (Late st Contact Info) Description 02/13/2025 8:00 AM EDT Appointment [facility] [address] [phone] 03/13/2025 8:00 AM EDT Appointment [facility] Outpatient Re[facility] [address] [phone] 04/10/2025 8:00 AM EDT Appointment [facility] [address] [facility] [address] [address] 04/10/2025 8:00 AM EDT Office Visit [facility] [address] [facility] [address] [address] Clint Yeh MD [address] [address] 05/08/2025 8:00 AM EDT Appointment [facility] [address] [address] 06/05/2025 8:00 AM EDT Appointment [facility] [address] [address] 07/03/2025 8:00 AM EDT Appointment [facility] [address] [place] [address] 07/31/2025 8:00 AM EDT Appointment [facility] 175 [facility] [address] [place] [address] 08/28/2025 8:00 AM EDT [facility]ment [facility] [address] [place] [address] 09/25/2025 8:00 AM EST Appointment [facility] 175 [facility] [address] [place] [address] documented as of this encounter Visit Diagnoses Diagnosis Multiple sclerosis (CMS/HCC)- Primary Multiple sclerosis documented in this encounter Administered Medications Inactive Administered Medications - up to 3 most recent administrations Medication Order MAR Action Action Date Dose Rate Site natalizumab (TYSABRI) 300 mg in sodium chloride 0.9 % 115 mL IVPB 300 mg, intravenous, at 115 mL/hr, Administer over 60 Minutes, Once, On Mon01/17/25 at 0830, For 1 dose, ?? After the infusion is complete, flush with Sodium Chloride Injection 0.9% (NS)Indications:Multiple sclerosis (CMS/HCC) New Bag 01/17/2025 8:47 AM EST 300 mg 115 mL/hr documented in this encounter Orders Medications Ordered That Frantz ht Not Have Been Administered Count Last Ordered Date First Ordered Date natalizumab (TYSABRI) 300 mg in sodium chloride 0.9 % 115 mL IVPB 1 01/17/2025 Nursing Count Last Ordered Date First Orde red Date ONC NURSING COMMUNICATION 1 01/17/2025 ONC NURSING COMMUNICATION 3 1 01/17/2025 ONC NURSING COMMUNICATION 5 1 01/17/2025 ONC NURSING COMMUNICATION 7 1 01/17/2025 TREATMENT CONDITIONS 2 01/17/2025 documented in this encounter Care Teams Wrecker Operator Relationship Specialty Start Date End Date Chet Mantilla MD [address] [place], [place] PCP - General Internal Medicine 08/31/22 documented as of this encounter
--- OUTSIDE RECORDS SUMMARY | 2025-01-23 10:26 | XMS_ITS | Encounter Summary ---
Author Organization [facility] Address [address] [place] [address] Care Team Providers Care Sparker And Patcher Name Role Phone Chet Mantilla MD Primary Care Provider [phone] Reason for Visit * Reason Onset Date Comments MRI SCHEDULED 01/20/2025 Encounter Details Date Type Department Care Team (Late st Contact Info) Description 01/20/2025 Telephone [facility] [address] [facility] [address] [place] [address] Anjana Bai PA [address] [facility] [place] [address] MRI SCHEDULED Social History Tobacco Use Types Packs/Day Years [...] on file documented as of this encounter Ordered Prescriptions Prescription Sig Dispense Quantity Refills Last Filled Start Date End Date LORazepam (Ativan) 0.5 mg tablet 1 po 1 hour prior to MRI; may repeat 1 tab if needed at time of MRI 5 tablet 01/21/2025 documented in this encounter Progress Notes * SARBJIT Aguillon - 01/21/2025 8:38 AM EDTAddended by: ANJANA BAI on: 01/21/2025 08:38 AM Modules accepted: Orders * SARBJIT Aguillon - 01/21/2025 8:38 AM EDT Rx for lorazepam sent to pharmacy * Ayana Pappas - 01/20/2025 3:00 PM EDT Patient called saying she has her MRI scheduled for this coming Monday the and was wondering if she could have Lorazepam sent to her pharmacy for the MRI. documented in this encounter Plan of Treatment Upcoming Encounters Date Type Department Care Team (Late st Contact Info) Description 02/13/2025 8:00 AM EDT Appointment [facility] [address] [facility] [address] [address] 03/13/2025 8:00 AM EDT Appointment [facility] [address] [facility] [address] [address] 04/10/2025 8:00 AM EDT Appointment [facility] [address] [address] 04/10/2025 8:00 AM EDT Office Visit [facility] [place] [address] [facility] [address] [place] [address] Clint Yeh MD [address] [facility] [address] [address] 05/08/2025 8:00 AM EDT Appointment [facility] [address] [facility] [address] [address] 06/05/2025 8:00 AM EDT Appointment [facility] [address] [place] [address] 07/03/2025 8:00 AM EDT Appointment [facility] 175 [facility] 150 [place] [address] 07/31/2025 8:00 AM EDT Appointment [facility] 175 [facility] 150 [place] [address] 08/28/2025 8:00 AM EDT Appointment [facility] Outpatient Rehabil[facility]itation [facility] [address] [address] 09/25/2025 8:00 AM EST [facility] [address] [address] documented as of this encounter Visit Diagnoses Not on filedocumented in this encounter Discontinued Medications Medication Sig Discontinue Reason Start Date End Da te LORazepam (ATIVAN) 1 mg tablet Take 1 tablet (1 mg total) by mouth every 6 hours as needed. needed (MRI 0NE TO 2 TABLETS MAXIMUM Someone have drive you). 06/28/2023 01/21/2025 documented as of this encounter Care Teams Sparker And Patcher Relationship Specialty Start Date End Date Chet Mantilla MD [address] [place], [place] PCP - General Internal Medicine 08/31/22 documented as of this encounter
== END 2025-01-23 10:12 | disposition home or self-care (01) ==
LOC: HO.RHES 09:06
PROVIDERS: Visit Provider Internal Medicine Rheumatology
DX: M06.9 Rheumatoid arthritis, unspecified (principal); Z79.899 Other long term (current) drug therapy
CPT/HCPCS: 20610; 99215; G2211

== ENCOUNTER 2025-01-23 09:05 | Outpatient (REF) | payer OTHER, SELFPAY ==
--- OUTSIDE RECORDS SUMMARY | 2025-01-23 12:26 | XMS_ITS | Clinical Summary ---
Author Organization [facility] Address [address] [place] [address] Care Team Providers Care Passenger Car Conductor Name Role Phone Chet Mantilla MD Primary Care Provider [phone] Allergies No known active allergies Medications Medication Sig Dispensed Refills Start Date End Date Status methotrexate 2.5 MG tablet Take 5 tablets (12.5 mg total) by mouth once a week. 0 Active folic acid (FOLVITE) tablet 1 mg Take 1 tablet (1 mg total) by mouth daily. 0 Active [place]-3 Fatty Acids (Fish Oil) 1000 MG CAPS Take by mouth. 0 Active etonogestrel (Nexplanon) 68 MG IMPL subcutaneous implant 68 mg by Subdermal route once. 0 Active ergocalciferol (VITAMIN D2) capsule 35508 units Take 1 capsule (50,000 Units total) [...] age to complete this topic Care Teams Passenger Car Conductor Relationship Specialty Start Date End Date Chet Mantilla MD [address] [place] [phone] PCP - General Internal Medicine 08/31/22
--- OUTSIDE RECORDS SUMMARY | 2025-01-23 12:26 | XMS_ITS | Encounter Summary ---
Author Organization [facility] [place] [address] Care Team Providers Care First Crusher Name Role Phone Chet Mantilla MD Primary Care Provider [phone] Encounter Details Date Type Department Care Team [...] Info) Description 02/13/2025 8:00 AM EDT Appointment [facility] [address] [address] 03/13/2025 8:00 AM EDT Appointment [facility] [address] [address] 04/10/2025 8:00 AM EDT Appointment [facility] 175 [facility] 150 [place] [address] 04/10/2025 8:00 AM EDT Office Visit [facility] [place] [address] [place] [address] Clint Yeh MD [address] [facility] [address] [place] [address] 05/08/2025 8:00 AM EDT Appointment [facility] [place] [address] [facility] [address] [place] [address] 06/05/2025 8:00 AM EDT Appointment [facility] [place] [address] [facility] [address] [place] [address] 07/03/2025 8:00 AM EDT Appointment [facility] [place] [address] [facility] [address] [address] 07/31/2025 8:00 AM EDT Appointment [facility] [place] [address] [facility] [address] [address] 08/28/2025 8:00 AM EDT Appointment [facility] [place] [address] [address] 09/25/2025 8:00 AM EST Appointment [facility] [address] [address] documented as of this encounter Visit Diagnoses Diagnosis Multiple sclerosis (CMS/HCC) Multiple sclerosis documented in this encounter Care Teams First Crusher Relationship Specialty Start Date End Date Chet Mantilla MD [address] [place], [place] PCP - General Internal Medicine 08/31/22 documented as of this encounter
--- OUTSIDE RECORDS SUMMARY | 2025-01-23 12:26 | XMS_ITS | Clinical Summary ---
Author Organization 175 [facility] Address 175 [place] [address] Phone Care Team Providers Care Stain Applicator Name Role Phone Chet Mantilla MD Primary Care Provider [phone] Allergies No known active allergies Medications omega-3 [...] Type Department Care Team Description 01/20/[address] [address] Alma German PA MRI SCHEDULED 01/17/2025 8:00 AM EST - 01/17/2025 11:59 PM EST Hospital Encounter [facility] [address] [address] Multiple sclerosis (CMS/HCC) (Primary Dx) Discharge Disposition: Home or Self Care 12/19/2024 8:00 AM EST - 12/19/2024 11:59 PM EST Hospital Encounter [facility] [address] Multiple sclerosis (CMS/HCC) (Primary Dx) Discharge Disposition: Home or Self Care 11/21/2024 8:30 AM EST Office Visit [address] [address] Alma German PA Multiple sclerosis (CMS/HCC) (Primary Dx) 11/21/2024 8:12 AM EST - 11/21/2024 11:59 PM EST Hospital Encounter [facility] [address] Multiple sclerosis (CMS/HCC) (Primary Dx) Discharge Disposition: Home or Self Care 11/15/2024 Telephone [facility] [address] Alma German PA TYDANIEL CHAVD from Last 3 Months Immunizations Name Administration Dates Next Due Pfizer SARS-CoV-2 COVID-19, mRNA, LNP-S, preservative free 10/18/2021,09/24/2021 Surgical History Surgery Date Site/Laterality Comments NO PAST SURGERIES PROCEDURE:NO PAST SURGERIES Medical History Medical History Date Comments MS (multiple sclerosis) ([facility]/HCC) DX:MS (multiple sclerosis) ([facility]) Arthritis DX:Arthritis Family History Medical History Relation [...] Info) Description 02/13/2025 8:00 AM EDT Appointment [facility] Outpatient Rehabilititation [facility] [address] [address] 03/13/2025 8:00 AM EDT Appointment [facility] Outpatient Rehabil[facility]itation [facility] [address] [address] 04/10/2025 8:00 AM EDT Appointment [facility] Outpatient Rehabil[facility]itation [facility] [address] [address] 04/10/2025 8:00 AM EDT Office Visit [facility] [place] [address] [address] Clint Yeh MD [address] [address] 05/08/2025 8:00 AM EDT Appointment [facility] [place] [address] [address] 06/05/2025 8:00 AM EDT Appointment [facility] - [address] [address] 07/03/2025 8:00 AM EDT Appointment [facility] [address] [address] 07/31/2025 8:00 AM EDT Appointment [facility] [address] [address] 08/28/2025 8:00 AM EDT Appointment [facility] [address] [address] 09/25/2025 8:00 AM EST Appointment [facility] [address] [address] Health Maintenance Due Date Last Done Comments [...] and culture (11/21/2024 9:59 AM EST) Specific [place] Urine 1.017 1.003 - 1.030 LAB URINALYSIS - AUTOMATED METHOD 11/21/2024 2:22 PM [facility] pH, Urine 7.0 5.0 - 8.0 pH LAB URINALYSIS - AUTOMATED METHOD 11/21/2024 2:22 PM [facility] Leukocytes, Urine Negative Negative LAB URINALYSIS - AUTOMATED METHOD 11/21/2024 2:22 PM [facility] Nitrite, Urine Negative Negative LAB URINALYSIS - AUTOMATED METHOD 11/21/2024 2:22 PM [facility] Protein, Urine Negative <=Trace mg/dL LAB URINALYSIS - AUTOMATED METHOD 11/21/2024 2:22 PM [facility] Glucose, Urine Negative Negative mg/dL LAB URINALYSIS - AUTOMATED METHOD 11/21/2024 2:22 PM [facility] Ketones, Urine Negative Negative mg/dL LAB URINALYSIS - AUTOMATED METHOD 11/21/2024 2:22 PM [facility] Urobilinogen, Urine 0.2 0.2 - 1.0 mg/dL LAB URINALYSIS - AUTOMATED METHOD 11/21/2024 2:22 PM [facility] Bilirubin, Urine Negative Negative LAB URINALYSIS - AUTOMATED METHOD 11/21/2024 2:22 PM [facility] Blood, Urine Negative Negative LAB URINALYSIS - AUTOMATED METHOD 11/21/2024 2:22 PM [facility] Urine Urine specimen obtained by clean catch procedure / Unknown Non-blood Collection / Unknown 11/21/2024 9:59 AM EST 11/21/2024 9:59 AM EST Almapreeti Smithi PA LAB URINE ORDERABLES Final R esult [facility] [address] [place] [address], [place] [phone] * Maldonado urine culture tube (11/21/2024 9:59 AM EST) Pathologist [facility] Extra Tube Hold for add-ons. 11/21/2024 3:01 PM [facility] Comment:Auto resulted. Urine Urine specimen obtained by clean catch procedure / Unknown Non-blood Collection / Unknown 11/21/2024 9:59 AM EST 11/21/2024 9:59 AM EST Almapreeti Smithi PA LAB URINE ORDERABLES Final R esult [facility] [address] [place] [address], [place] [phone] * Interferon gamma interpretation (11/21/2024 8:46 AM EST) Quantiferon Plus Interpretation Negative Negative LAB CHEMISTRY METHOD 11/22/2024 9:43 AM [facility] Blood Venous blood specimen / Unknown Venipuncture / Unknown 11/21/2024 8:46 AM EST 11/21/2024 8:47 AM EST Chico Acosta MD LAB BLOOD ORDERABLES Page l Result [facility] [address] [place] [address], [place] [phone] * Interferon gamma antigen 2 (11/21/2024 8:46 AM EST) Blood Venous blood specimen / Unknown Venipuncture / Unknown 11/21/2024 8:46 AM EST 11/21/2024 8:47 AM EST Chico Acosta MD LAB BLOOD ORDERABLES Page l Result Performing Organization Address City/[facility]/ZIP Co de Phone Number [facility] [address] [place] [address], [place] [phone] * Inteferon gamma antigen 1 (11/21/2024 8:46 AM EST) Blood Venous blood specimen / Unknown Venipuncture / Unknown 11/21/2024 8:46 AM EST 11/21/2024 8:47 AM EST Chico Acosta MD LAB BLOOD ORDERABLES Page l Result Performing Organization Address City/[facility]/ZIP Co de Phone Number [facility] [address] [place] [address], [place] [phone] * Interferon gamma mitogen (11/21/2024 8:46 AM EST) Blood Venous blood specimen / Unknown Venipuncture / Unknown 11/21/2024 8:46 AM EST 11/21/2024 8:47 AM EST Chico Acosta MD LAB BLOOD ORDERABLES Page l Result Performing Organization Address City/[facility]/ZIP Co de Phone Number [facility] [address] [place] [address], [place] [phone] * Interferon gamma NIL (11/21/2024 8:46 AM EST) Blood Venous blood specimen / Unknown Venipuncture / Unknown 11/21/2024 8:46 AM EST 11/21/2024 8:47 AM EST Chico Acosta MD LAB BLOOD ORDERABLES Page l Result Performing Organization Address [facility]/State/ZIP Co de Phone Number [facility] [address] [place] [address], [place] [phone] * Hepatitis panel, acute with reflex to confirmation (11/21/2024 8:46 AM EST) Hepatitis B Surface Ag Negative Negative LAB CHEMISTRY METHOD 11/21/2024 11:42 AM EST [facility] Hepatitis A Antibody IgM Negative Negative LAB CHEMISTRY METHOD 11/21/2024 11:42 AM EST [facility] Hep B Core IgM Negative Negative LAB CHEMISTRY METHOD 11/21/2024 11:42 AM EST [facility] Hepatitis C Antibody Negative Negative LAB CHEMISTRY METHOD 11/21/2024 11:42 AM EST [facility] Blood Venous blood specimen / Unknown Venipuncture / Unknown 11/21/2024 8:46 AM EST 11/21/2024 8:47 AM EST Chico Acosta MD LAB BLOOD ORDERABLES Page l Result Performing Organization Address City/[facility]/ZIP Co de Phone Number [facility] [address] [place] [address], [place] [phone] * Alanine aminotransferase (11/21/2024 8:46 AM EST) ALT (SGPT) 21 10 - 60 unit/L LAB CHEMISTRY METHOD 11/21/2024 10:51 AM EST [facility] Blood Venous blood specimen / Unknown Venipuncture / Unknown 11/21/2024 8:46 AM EST 11/21/2024 8:47 AM EST Chico Acosta MD LAB BLOOD ORDERABLES Page [email or web address] Result [facility] [address] [place] [address], [place] [phone] from Last 3 Months Insurance [facility] [address] [place] [address] Care Teams Stain Applicator Relationship Specialty Start Date End Date Chet Mantilla MD [address] [place], [place] PCP - General Internal Medicine 08/31/22
--- OUTSIDE RECORDS SUMMARY | 2025-01-23 12:26 | XMS_ITS | Encounter Summary ---
Author Organization [facility] Address [address] [place] [address] Care Team Providers Care Director Of Anesthesia Services Name Role Phone Chet Mantilla MD Primary Care Provider [phone] Reason for Visit * Reason Onset Date Comments MRI SCHEDULED 01/20/2025 Encounter Details Date Type Department Care Team (Late st Contact Info) Description 01/20/2025 Telephone [facility] for [facility] 175 [facility] [address] [place] [address] Anjana Bai PA [address] [facility] [place] [address] MRI SCHEDULED Social History Tobacco Use Types [...] Info) Description 02/13/2025 8:00 AM EDT Appointment [facility] [address] [facility] [address] [address] 03/13/2025 8:00 AM EDT Appointment [facility] [address] [facility] [address] [address] 04/10/2025 8:00 AM EDT Appointment [facility] [address] [address] 04/10/2025 8:00 AM EDT Office Visit [facility] [place] [address] [facility] [address] [place] [address] Clint Yeh MD [address] [facility] [address] [address] 05/08/2025 8:00 AM EDT Appointment [facility] [address] [facility] [address] [address] 06/05/2025 8:00 AM EDT Appointment [facility] [address] [place] [address] 07/03/2025 8:00 AM EDT Appointment [facility] 175 [facility] [address] [place] [address] 07/31/2025 8:00 AM EDT Appointment [facility] 175 [facility] [address] [place] [address] 08/28/2025 8:00 AM EDT Appointment [facility] Outpatient Rehabil[facility] [address] [address] 09/25/2025 8:00 AM EST [facility]ment [facility] [address] [address] documented as of this encounter Visit Diagnoses Not on filedocumented in this encounter Discontinued Medications Medication Sig Discontinue Reason Start Date End Da te LORazepam (ATIVAN) 1 mg tablet Take 1 tablet (1 mg total) by mouth every 6 hours as needed. needed (MRI 0NE TO 2 TABLETS MAXIMUM Someone have drive you). 06/28/2023 01/21/2025 documented as of this encounter Care Teams Director Of Anesthesia Services Relationship Specialty Start Date End Date Chet Mantilla MD [address] [place], [place] PCP - General Internal Medicine 08/31/22 documented as of this encounter
--- OUTSIDE RECORDS SUMMARY | 2025-01-23 12:26 | XMS_ITS | Encounter Summary ---
Author Organization [facility] [place] [address] Care Team Providers Care Feather Baler Name Role Phone Chet Mantilla MD Primary Care Provider [phone] Encounter Details Date Type Department Care Team [...] Info) Description 02/13/2025 8:00 AM EDT Appointment [facility] Outpatient [facility] [address] [address] 03/13/2025 8:00 AM EDT Appointment [facility] [place] [address] [address] 04/10/2025 8:00 AM EDT Appointment [facility] [address] [address] 04/10/2025 8:00 AM EDT Office Visit [facility] [place] [address] [address] Clint Yeh MD [address] [address] 05/08/2025 8:00 AM EDT Appointment [facility] [address] [address] 06/05/2025 8:00 AM EDT Appointment [facility] [address] [address] 07/03/2025 8:00 AM EDT Appointment [facility] [address] [address] 07/31/2025 8:00 AM EDT Appointment [facility] [address] [address] 08/28/2025 8:00 AM EDT Appointment [facility] [address] [address] 09/25/2025 8:00 AM EST Appointment [facility] [address] [address] documented as of this encounter Visit Diagnoses Not on filedocumented in this encounter Care Teams Feather Baler Relationship Specialty Start Date End Date Chet Mantilla MD [address] [place] [address] PCP - General Internal Medicine 08/31/22 documented as of this encounter
--- OUTSIDE RECORDS SUMMARY | 2025-01-23 12:26 | XMS_ITS | Encounter Summary ---
Author Organization [facility] Address [address] [place] [address] Care Team Providers Care Drum Plater Name Role Phone Chet Mantilla MD Primary Care Provider [phone] Reason for Visit * Episode Based Medications (Routine) - Authorized Specialty Diagnoses / Procedures Referred By Contac t Referred To Contact Infusion Therapy Diagnoses Multiple sclerosis Tysabri Procedures INFUSION Alma German PA 175 [facility] [address] [place] [address] Phone: tel: [facility] [place] [facility] 175 [facility] [address] [place] [address] Phone: tel: fax: Referral ID Status Reason Start Date Expiration Date V isits Requested Visits Authorized [id number] Authorized 12/11/2024 06/08/2025 7 7 Encounter Details Date Type Department Care Team (Latest Contact Info) Description 01/17/2025 8:00 AM EST - 01/17/2025 11:59 PM EST Hospital Encounter [facility] [place] [facility] 175 [facility] [address] [place] [address] Multiple sclerosis (CMS/HCC) (Primary Dx) [...] in this encounter Progress Notes * Cecelia Grove RN - 01/17/2025 8:00 AM EST Tysabri [...] Info) Description 02/13/2025 8:00 AM EDT Appointment [facility] [address] [phone] 03/13/2025 8:00 AM EDT Appointment [facility] Out[facility] [address] [address] 04/10/2025 8:00 AM EDT Appointment [facility] [place] [facility] [address] [facility] [address] [address] 04/10/2025 8:00 AM EDT Office Visit [facility] [address] [facility] [address] [phone] Clint Yeh MD [address] [phone] 05/08/2025 8:00 AM EDT Appointment [facility] [address] [address] 06/05/2025 8:00 AM EDT Appointment [facility] [address] [address] 07/03/2025 8:00 AM EDT Appointment [facility] [address] [place] [address] 07/31/2025 8:00 AM EDT Appointment [facility] 175 [facility] [address] [place] [address] 08/28/2025 8:00 AM EDT App[facility]ment [facility] [address] [facility] [address] [place] [address] 09/25/2025 8:00 AM EST Appointment [facility] [address] [facility] [address] [place] [address] documented as of this encounter Visit Diagnoses [...] 01/17/2025 documented in this encounter Care Teams Drum Plater Relationship Specialty Start Date End Date Chet Mantilla MD [address] [place], [place] PCP - General Internal Medicine 08/31/22 documented as of this encounter
[2025-01-23 18:05] LABS: Basophils Absolute Auto 0.1 X10*3/uL (0.0-0.2); Basophils Percent Auto 0.7 % (0-2); Eosinophils Absolute Auto 0.1 X10*3/uL (0.0-0.4); Eosinophils Percent Auto 1.4 % (0-4); Hematocrit 40.2 % (37.0-47.0); Hemoglobin 12.3 g/dl (12.0-16.0); Imm Gran Abs Auto 0.02 X10*3/uL (0.00-0.03); Imm Gran Pct Auto 0.3 % (0.0-0.4); Lymphocytes Absolute Auto 4.4 X10*3/uL (1.2-4.9); Lymphocytes Percent Auto 60.6 % (20-40); MANUAL DIFF FLAG SCAN; Mean Corpuscular HGB Conc 30.6 g/dl (31.0-35.0); Mean Corpuscular Hemoglobin 25.5 pg (27.0-33.0); Mean Corpuscular Volume 83.2 fL (80.0-98.0); Mean Platelet Volume 11.7 fL (9.4-12.3); Monocytes Absolute Auto 0.5 X10*3/uL (0.1-1.2); Monocytes Percent Auto 7.1 % (2-11); NRBC Pct Auto 0.4 /100WBC (0.0-0.2); Neutrophils Absolute Auto 2.2 x10*3/uL (2.0-8.3); Neutrophils Percent Auto 29.9 % (45-73); Platelet Count 224 X10*3/uL (160-400); Red Blood Count 4.83 X10*6/uL (4.20-5.50); Red Cell Distribution Width 13.7 % (11.0-16.0); SCAN SMEAR FLAG 1; White Blood Count 7.3 X10*3/uL (4.8-10.8)
[2025-01-23 18:06] LABS: Alanine Aminotransferase 18 U/L (0-31); Aspartate Amino Transferase 27 U/L (5-31); C Reactive Protein 0.42 mg/dL (< or = 0.50); Estimated Glomerular Filt Rate > 60
[2025-01-23 18:25] LABS: SLIDE REVIEW VERIFIED
[2025-01-23 18:52] LABS: Erythrocyte Sedimentation Rate 16 MM/HR (0-20)
[2025-01-24 04:02] LABS: HBS Num1 88.74 mIU/mL (0-7.99); HBc Num1 0.51 S/CO (0.00-0.79); HBsAGNum1 0.28 S/CO (0.00-0.99); Hepatitis B Core Antibody Nonreactive (Nonreactive); Hepatitis B Surface Antigen Negative (Negative); ~HepC Num1 0.12 S/CO (0.00-0.79); ~Hepatitis B Surface Antibody REACTIVE (Nonreactive); ~Hepatitis C Antibody Nonreactive (Nonreactive)
[2025-01-27 00:13] LABS: TS Negative Control Passed; TS Panel A 0; TS Panel B 0; TS Positive Control Passed; TSpotTB Negative (Negative)
== END 2025-01-23 09:06 | disposition home or self-care (01) ==
LOC: HO.HKASLDS 09:05
PROVIDERS: Visit Provider Internal Medicine Rheumatology
DX: M25.561 Pain in right knee (principal); M25.562 Pain in left knee; M25.462 Effusion, left knee; M25.461 Effusion, right knee; M06.9 Rheumatoid arthritis, unspecified; Z79.60 Long term (current) use of unspecified immunomodulators and immunosuppressants; Z79.899 Other long term (current) drug therapy
CPT/HCPCS: 20610; 36415; 82565; 84450; 84460; 85025; 85652; 86140; 86481; 86704; 86706; 86803; 87340; 99212; J2003; J3300

== ENCOUNTER 2025-04-29 08:29 | Outpatient (REF) | payer MEDICARE, MEDICAID, SELFPAY ==
[2025-04-29 17:30] LABS: MANUAL DIFF FLAG NO
[2025-04-29 17:53] LABS: Basophils Absolute Auto 0.1 X10*3/uL (0.0-0.2); Basophils Percent Auto 0.7 % (0-2); Eosinophils Absolute Auto 0.1 X10*3/uL (0.0-0.4); Eosinophils Percent Auto 0.9 % (0-4); Hematocrit 43.6 % (37.0-47.0); Hemoglobin 13.5 g/dl (12.0-16.0); Imm Gran Abs Auto 0.04 X10*3/uL (0.00-0.03); Imm Gran Pct Auto 0.5 % (0.0-0.4); Lymphocytes Absolute Auto 3.9 X10*3/uL (1.2-4.9); Mean Corpuscular Hemoglobin 25.7 pg (27.0-33.0); Mean Corpuscular Volume 82.9 fL (80.0-98.0); Mean Platelet Volume 11.2 fL (9.4-12.3); Monocytes Absolute Auto 0.3 X10*3/uL (0.1-1.2); Monocytes Percent Auto 4.6 % (2-11); NRBC Pct Auto 0.8 /100WBC (0.0-0.2); Neutrophils Absolute Auto 3.1 x10*3/uL (2.0-8.3); Neutrophils Percent Auto 41.3 % (45-73); Platelet Count 247 X10*3/uL (160-400); Red Blood Count 5.26 X10*6/uL (4.20-5.50); Red Cell Distribution Width 14.7 % (11.0-16.0); White Blood Count 7.4 X10*3/uL (4.8-10.8)
[2025-04-29 18:08] LABS: Alanine Aminotransferase 20 U/L (0-31); Aspartate Amino Transferase 29 U/L (5-31); C Reactive Protein 0.11 mg/dL (< or = 0.50); Estimated Glomerular Filt Rate > 60
[2025-04-29 18:28] LABS: Erythrocyte Sedimentation Rate 11 MM/HR (0-20)
== END 2025-04-29 08:30 | disposition home or self-care (01) ==
LOC: HO.HKASLDS 08:29
PROVIDERS: Visit Provider Internal Medicine Rheumatology
DX: M06.9 Rheumatoid arthritis, unspecified (principal); M25.562 Pain in left knee; M25.561 Pain in right knee; Z79.899 Other long term (current) drug therapy; Z79.60 Long term (current) use of unspecified immunomodulators and immunosuppressants
CPT/HCPCS: 20610; 36415; 82565; 84450; 84460; 85025; 85652; 86140; 99212; J2003; J3300

== ENCOUNTER 2025-04-29 08:29 | Outpatient (AMB) | payer MEDICARE, MEDICAID, SELFPAY ==
[2025-04-29 08:34] VITALS: BP 130/80; PULSE 96; O2SAT 97; BMI 27.1
--- NOTE | 2025-04-29 08:34 | A.OFFVIS_ITS ---
Vital Signs 04/29/25 08:34 Height 5 ft 6 in Weight 168 lb BMI 27.1 BP 130/80 Blood Pressure Location Lt brachial Position Sitting Pulse 96 Pulse Source Pulse Oximeter Pulse Oximetry (%) 97 Oxygen Delivery Method Room Air Intake Visit Reasons: 3 Months Intake Note: Patient presents for follow up on RA. Accompanied by: Self / Same As Patient Allergies No Known Allergies Allergy (Verified 04/29/25 08:35) HPI HPI 3 Months: Details: R knee pain is worse today. Pain in quadraceps with getting up. She does PT exercises daily. She is applying k tape without benefit. Compression sleeve is not compressing enough. Left shoulder pain got worse on Monday. She could not move it yesterday. [facility] Medical History Rheumatoid arthritis Surgical History No pertinent past surgical history Social History Alcohol intake: never Patient Tobacco Use Status: Never used Tobacco Physical Exam Vital Signs: Last Vital Signs Pulse 96 04/29/25 08:34 BP 130/80 04/29/25 08:34 Pulse Ox 97 04/29/25 08:34 Oxygen Delivery Method Room Air 04/29/25 08:34 BMI result Body Mass Index 27.1 Const Other: General: Comfortable CVS: RRR Respiratory: clear to auscultation bilaterally. Good respiratory effort Skin: No lesions seen MSK: Tender to palpate left anterior shoulder with active abduction 120 degrees. Passive abduction 90 degrees. She has limited full internal and e xternal rotation of left shoulder. Right shoulder is normal. Mild left knee effusion. Tender right knee along joint line. Normal range of motion of left lower extremities. Office Procedures AMB Joint Injection/Aspiration Joint Injection/Aspiration Details: Bilateral knee joints Prep: site was prepped using aseptic technique Injected into each joint: 40 mg of, Kenalog, with 1 mL of and 1% plain lidocaine Procedure: Informed verbal consent was obtained. The patient tolerated the procedure well. Postprocedure protocol was discussed with patient. Coding 96577 - Bilateral Large Joint Procedure code (CPT) selection complete AMB Joint Injection/Aspiration Coding 76446 - Bilateral Large Joint Procedure code (CPT) selection complete Office Meds lidocaine (PF) 10 mg/mL (1 %) injection solution Performing Provider: Chico Acosta MD Performing Location: [facility] Documented (not given) by: Chico Acosta MD on 04/29/25 22:46 Dose Route Admin Location Dispensed Lot Number Expiration Date [facility] [employer] 10 mg Infiltration mL Kenalog 40 mg/mL suspension for injection Performing Provider: Chico Acosta MD Performing Location: [facility] Documented (not given) by: Chico Acosta MD on 04/29/25 22:46 Dose Route Admin Location Dispensed Lot Number Expiration Date [facility] [employer] 40 mg intra-articular mL lidocaine (PF) 10 mg/mL (1 %) injection solution Performing Provider: Chico Acosta MD Performing Location: [facility] Documented (not given) by: Chico Acosta MD on 04/29/25 22:46 Dose Route Admin Location Dispensed Lot Number Expiration Date [facility] [employer] 10 mg Infiltration mL Kenalog 40 mg/mL suspension for injection Performing Provider: Chico Acosta MD Performing Location: [facility] Documented (not given) by: Chico Acosta MD on 04/29/25 22:46 Dose Route Admin Location Dispensed Lot Number Expiration Date [facility] [employer] 40 mg intra-articular mL Assessment & Plan Assessment & Plan (1) PAULA (juvenile idiopathic arthritis): Comment: Controlled on monotherapy with methotrexate. Rheumatology history. 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 Diagnosed with JRA age 41. Methotrexate 12/2021- Code(s): M08.80 - Other juvenile arthritis, unspecified site Category: Medical Plan: Continue methotrexate 20 mg once weekly Continue folic acid 1 mg daily Labs for disease and drug monitoring on high-risk medication ordered Return to clinic in 3 months (2) Other terminal gauger (current) drug therapy: Code(s): Z79.899 - Other terminal gauger (current) drug therapy Category: Medical Plan: See above (3) Osteoarthritis of knees, bilateral: Comment: Rheumatology history: She has bilateral patellofemoral osteoarthritis. She received left knee cortisone injection 01/2025. Code(s): M17.0 - Bilateral primary osteoarthritis of knee Category: Medical Qualifiers: Osteoarthritis type: primary Qualified Code(s): M17.0 - Bilateral p rimary osteoarthritis of knee Plan: Patient received bilateral knee cortisone injections this visit Hinged knee brace prescribed Encouraged weight loss with healthy eating and exercise Return to clinic in 3 months (4) Left shoulder pain: Comment: I am suspecting she has left shoulder adhesive capsulitis. Code(s): M25.512 - Pain in left shoulder Category: Medical Qualifiers: Chronicity: chronic Qualified Code(s): M25.512 - Pain in left shoulder; G89.29 - Other chronic pain Plan: PT ordered to improve range of motion Celebrex 200 mg twice a day prescribed X-ray left shoulder ordered Return to clinic in 3 months (5) Adhesive capsulitis of left ankle: Code(s): M77.52 - Other enthesopathy of left foot and ankle Category: Medical Plan: See above Orders: Orders Alanine Aminotransferase Today M06.9 - Rheumatoid arthritis, unspecified, Z79.60 - middle or intermediate school principal (current) use of unspecified immunomodulators and immunosuppressants, Z79.899 - Other correction (current) drug therapy Aspartate Amino Transferase Today M06.9 - Rheumatoid arthritis, unspecified, Z79.60 - middle or intermediate school principal (current) use of unspecified immunomodulators and immunosuppressants, Z79.899 - Other correction (current) drug therapy Creatinine Today M06.9 - Rheumatoid arthritis, unspecified, Z79.60 - intermediate (current) use of unspecified immunomodulators and immunosuppressants, Z79.899 - Other correction (current) drug therapy Erythrocyte Sedimentation Rate Today M06.9 - Rheumatoid arthritis, unspecified, Z79.899 - Other correction (current) drug therapy C Reactive Protein Today M06.9 - Rheumatoid arthritis, unspecified, Z79.899 - Other terminal gauger (current) drug therapy PT Evaluation and Treatment Today M25.512 - Pain in left shoulder, M77.52 - Other enthesopathy of left foot and ankle AMB Joint Injection/Aspiration Today M17.0 - Bilateral primary osteoarthritis of knee Complete Blood Count Auto Diff Today M06.9 - Rheumatoid arthritis, unspecified, Z79.60 - middle or intermediate school principal (current) use of unspecified immunomodulators and immunosuppressants, Z79.899 - Other terminal gauger (current) drug therapy AMB Joint Injection/Aspiration Today M17.0 - Bilateral primary osteoarthritis of knee XR shoulder LT min 2V Today G89.29 - Other chronic pain, M25.512 - Pain in left shoulder, M77.52 - Other enthesopathy of left foot and ankle Medications: New Kenalog (triamcinolone acetonide) 40 mg intra-articular ONCE 1 mL 0RF NS M17.0 - Bilateral primary osteoarthritis of knee leg brace (Knee Support Brace) As directed. bilateral knee hinged brace dx: Bilateral Patellofemoral knee osteoarthritis 2 ea 0RF lidocaine (PF) 10 mg Infiltration ONCE 1 mL 0RF M17.0 - Bilateral primary osteoarthritis of knee lidocaine (PF) 10 mg Infiltration ONCE 1 mL 0RF M17.0 - Bilateral primary osteoarthritis of knee Kenalog (triamcinolone acetonide) 40 mg intra-articular ONCE 1 mL 0RF NS M17.0 - Bilateral primary osteoarthritis of knee celecoxib Take 1 tablet twice a day with food until shoulder pain resolves 200 mg PO BID 60 caps 2RF Refilled methotrexate sodium 20 mg (8 x 2.5 mg) PO QWEEK 84 days 96 tabs 0RF Coding Level of Care Code Est Pt Level 4 (89281) Complex EM visit Add On G2211 Diagnoses PAULA (juvenile idiopathic arthritis) M08.80 Other terminal gauger (current) drug therapy Z79.899 Primary osteoarthritis of both knees M17.0 Osteoarthritis type: primary Chronic left shoulder pain M25.512; G89.29 Chronicity: chronic Adhesive capsulitis of left ankle M77.52 CPT Codes Coding - 09677 - Bilateral Large Joint: 23610 - Bilateral Large Joint ([id number]) Coding - 00556 - Bilateral Large Joint: 25165 - Bilateral Large Joint ([id number]) Time Spent (min) 35
== END 2025-04-29 09:44 | disposition home or self-care (01) ==
PROVIDERS: PCP Nurse Practitioner Family; Visit Provider Internal Medicine Rheumatology
DX: M17.0 Bilateral primary osteoarthritis of knee (principal)

== ENCOUNTER 2025-07-31 09:06 | Outpatient (AMB) | payer MEDICARE, MEDICAID, SELFPAY ==
--- OUTSIDE RECORDS SUMMARY | 2024-04-11 07:58 | XMS_ITS | Encounter Summary ---
Author Organization [facility] [place] [address] Care Team Providers Care Ms Sql Developer Name Role Phone Chet Mantilla MD Primary Care Provider [phone] Encounter Details Date Type Department Care Team (Latest Contact Info) Description 04/11/2024 7:58 AM EDT Hospital Encounter TH HISTORIC ENCOUNTERS EASTERN CONVERSION ONLY Multiple sclerosis (CMS/HCC V24, CMS/HCC V28) Social History Tobacco Use Types Packs/Day Years Used Date Smoking Tobacco: Never Smokeless Tobacco: Never Alcohol Use Standard Drinks/Week Comments Not Currently 0 (1 standard drink = 0.6 oz pur e alcohol) Comments Unknown Sex and Gender Information Value Date Recorded Sex Assigned at Not on file Legal Sex Female 6:44 AM EST Gender Identity Not on file Sexual Orientation Not on file documented as of this encounter Plan of Treatment Upcoming Encounters Date Type Department Care Team (Late st Contact Info) Description 08/01/2025 10:00 AM EDT Appointment [facility] [address] [address] 08/28/2025 8:00 AM EDT Appointment [facility] [address] [address] 09/25/2025 8:00 AM EST Appointment [facility] [address] [address] 10/23/2025 8:00 AM EST Appointment [facility] [place] [address] [place] [address] 10/23/2025 8:30 AM EST Office Visit [facility] [place] [address] [facility] [address] [place] [phone] Alma German PA [address] [facility] [address] [address] 11/20/2025 8:00 AM EST Appointment [facility] [place] [address] [facility] [address] [address] 12/18/2025 8:00 AM EST Appointment [facility] [address] [address] 01/15/2026 8:00 AM EST Appointment [facility] [address] [facility] [address] [address] 02/12/2026 8:00 AM EDT Appointment [facility] [address] [address] 03/12/2026 8:00 AM EDT Appointment [facility] [address] [address] documented as of this encounter Visit Diagnoses Diagnosis Multiple sclerosis (CMS/HCC V24, CMS/HCC V28) Multiple sclerosis documented in this encounter Care Teams Ms Sql Developer Relationship Specialty Start Date End Date Chet Mantilla MD [address] [place] [address] PCP - General Internal Medicine 08/31/22 documented as of this encounter
--- OUTSIDE RECORDS SUMMARY | 2024-08-29 10:00 | XMS_ITS | Encounter Summary ---
Author Organization [facility] [place] [address] Care Team Providers Care Reinforcing Steel Erector Name Role Phone Chet Mantilla MD Primary Care Provider [phone] Encounter Details Date Type Department Care Team (Late st Contact Info) Description 08/29/2024 10:00 AM EDT Hospital Encounter TH HISTORIC ENCOUNTERS [facility]AST[facility] CONVERSION ONLY Social History Tobacco Use Types Packs/Day Years [...] on file documented as of this encounter Last Filed Vital Signs Vital Sign Reading Time Taken Comments Blood Pressure - - Pulse - - Temperature - - Respiratory Rate - - Oxygen Saturation - - Inhaled Oxygen Concentration - - Weight 70.5 kg (155 lb 6.4 oz) 08/01/2024 11:49 AM EDT Height 167.6 cm (5' 6 ) 08/01/2024 11:49 AM EDT Body Mass Index 25.08 08/01/2024 11:49 AM EDT documented in this encounter Plan of Treatment Upcoming Encounters Date Type Department Care Team (Late Contact Info) Description 08/01/2025 10:00 AM EDT Appointment [facility] [address] [phone] 08/28/2025 8:00 AM EDT Appointment [facility] [address] [address] 09/25/2025 8:00 AM EST Appointment [facility] [address] [address] 10/23/2025 8:00 AM EST Appointment [facility] [address] [address] 10/23/2025 8:30 AM EST Office Visit [facility] [place] [address] [address] Alma German PA [address] [address] 11/20/2025 8:00 AM EST Appointment [facility] [address] [address] 12/18/2025 8:00 AM EST Appointment [facility] [address] [address] 01/15/2026 8:00 AM EST Appointment [facility] [address] [address] 02/12/2026 8:00 AM EDT Appointment [facility] [address] [address] 03/12/2026 8:00 AM EDT Appointment [facility] [address] [address] documented as of this encounter Visit Diagnoses Not on filedocumented in this encounter Care Teams Reinforcing Steel Erector Relationship Specialty Start Date End Date Chet Mantilla MD [address] [place] [address] PCP - General Internal Medicine 08/31/22 documented as of this encounter
--- NOTE | 2025-07-31 09:10 | MHC.OFFVIS ---
Vital Signs 07/31/25 09:11 Height 5 ft 6 in Weight 154 lb 5.177 oz BMI 24.9 BP 110/70 Blood Pressure Location Lt brachial Position Sitting Pulse 76 Pulse Source Pulse Oximeter Pulse Oximetry (%) 98 Oxygen Delivery Method Room Air Intake Visit Reasons: 3 months Intake Note: Patient presents for follow up on RA. Accompanied by: Self / Same As Patient Allergies No Known Allergies Allergy (Verified 04/29/25 08:35) HPI HPI 3 months: Details: Denies new joint pain. Denies new joint swelling. No morning stiffness. No recent infections. She recently received braces for both of her knees last week. She has been wearing the right knee brace more than a left brace. She forgot to take her methotrexate for 1 week recently. She has Jo reminder for her methotrexate. She had a vacation in [place] after our last visit and was very mobile. [facility] Medical History Rheumatoid arthritis Surgical History No pertinent past surgical history Social History Alcohol intake: never Patient Tobacco Use Status: Never used Tobacco Physical Exam Vital Signs: Last Vital Signs Pulse 76 07/31/25 09:11 BP 110/70 07/31/25 09:11 Pulse Ox 98 07/31/25 09:11 Oxygen Delivery Method Room Air 07/31/25 09:11 BMI result Body Mass Index 24.9 Const Other: General: Comfortable CVS: RRR Respiratory: clear to auscultation bilaterally. Good respiratory effort Skin: No lesions seen MSK: No tenderness. Normal range of motion of upper extremities and lower extremities. Mild valgus deformity knees. Left knee mild effusion. Cool. Assessment & Plan Assessment & Plan (1) PAULA (juvenile idiopathic arthritis): Comment: In remission on monotherapy with methotrexate. Rheumatology history. 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 Diagnosed with JRA age 41. Methotrexate 12/2021- Code(s): M08.80 - Other juvenile arthritis, unspecified site Category: Medical Plan: Continue methotrexate 20 mg once weekly Continue folic acid 1 mg daily Labs for disease and drug monitoring on high-risk medication ordered Return to clinic in 3 months (2) Other watermelon inspector (current) drug therapy: Code(s): Z79.899 - Other snf (current) drug therapy Category: Medical Plan: See above (3) Osteoarthritis of knees, bilateral: Comment: Pain resolved with cortisone injections from last visit. Rheumatology history: She has bilateral patellofemoral osteoarthritis. She received left knee cortisone injection 01/2025, bilateral 04/2025. Code(s): M17.0 - Bilateral primary osteoarthritis of knee Category: Medical Qualifiers: Osteoarthritis type: primary Qualified Code(s): M17.0 - Bilateral primary osteoarthritis of knee Plan: Continue to wear Hinged knee brace Encouraged weight loss with healthy eating and exercise Return to clinic in 3 months (4) Left shoulder pain: Comment: Self resolved Code(s): M25.512 - Pain in left shoulder Category: Medical Qualifiers: Chronicity: chronic Qualified Code(s): M25.512 - Pain in left shoulder; G89.29 - Other chronic pain Plan: Monitor clinically Orders: Orders Complete Blood Count Auto Diff Today Z79.899 - Other snf (current) drug therapy Alanine Aminotransferase Today Z79.899 - Other snf (current) drug therapy Creatinine Today Z79.899 - Other watermelon inspector (current) drug therapy C Reactive Protein Today Z79.899 - Other watermelon inspector (current) drug therapy Aspartate Amino Transferase Today Z79.899 - Other snf (current) drug therapy Erythrocyte Sedimentation Rate Today Z79.899 - Other watermelon inspector (current) drug therapy Medications: Refilled methotrexate sodium 20 mg (8 x 2.5 mg) PO QWEEK 96 tabs 0RF 84 days Discontinued celecoxib Take 1 tablet twice a day with food until shoulder pain resolves Discontinued Reason: Doctor's Order 200 mg PO BID 60 caps 2RF Coding Level of Care Code Est Pt Level 4 (58366) Complex EM visit Add On G2211 Diagnoses PAULA (juvenile idiopathic arthritis) M08.80 Other watermelon inspector (current) drug therapy Z79.899 Primary osteoarthritis of both knees M17.0 Osteoarthritis type: primary Chronic left shoulder pain M25.512; G89.29 Chronicity: chronic
[2025-07-31 09:11] VITALS: BP 110/70; PULSE 76; O2SAT 98; BMI 24.9
--- OUTSIDE RECORDS SUMMARY | 2025-07-31 10:33 | XMS_ITS | Clinical Summary ---
Author Organization [facility] Address [address] [place] [id number] Phone Care Team Providers Care Litharge Mill Operator Name Role Phone Pcp, Unknown Primary Care Provider Unavailabl e Social History Tobacco Use Types Packs/Day Years Used Date Smoking Tobacco: Never Assessed Comments Unknown Sex and Gender Information Value Date Recorded Sex Assigned at Not on file Legal Sex Female 9:22 PM EDT Gender Identity Not on file Sexual Orientation Not on file Plan of Treatment Not on file Medical Devices Not on file [place] [address] [facility] [employer] [place] [facility] [place] [facility] [place] [facility] [address] [place] [address] [employer] Care Teams Litharge Mill Operator Relationship Specialty Start Date End Date Pcp, Unknown PCP - General 03/31/23 Additional Source Comments The information contained in this document represents components of the legal health record. It is not the complete legal health record.[facility]
--- OUTSIDE RECORDS SUMMARY | 2025-07-31 10:33 | XMS_ITS | Clinical Summary ---
Author Organization [facility] Address [address] [place] [address] Phone Care Team Providers Care Transportation Maintenance Worker Name Role Phone Chet Mantilla MD Primary Care Provider [phone] Allergies No known active allergies Medications omega-3 fatty acids 1,000 mg capsule Take 1 tablet by mouth 1 (one) time each day. Active baclofen (LIORESAL) 5 mg tablet Take 1 tablet (5 mg total) by mouth 1 (one) time each day. 1-3 tabs po in am and 1-2 tabs po hs 4 Active etonogestrel-eluti ng contraceptive device (Nexplanon) 68 mg implant subdermal [...] (one) time per week. 12 capsule 5 5 Active LORazepam (Ativan) 0.5 mg tablet 1 po 1 hour prior to MRI; may repeat 1 tab if needed at time of MRI 5 tablet 5 Active Active Problems Problem Noted Date Diagnosed Date Multiple sclerosis ([facility] V24, [facility] V28) Encounters Date Type Department Care Team Description 07/03/2025 10:00 AM EDT - 07/03/2025 11:59 PM EDT Hospital Encounter [facility] [place] [facility] [place] [address] [phone] Multiple sclerosis ([facility] V24, [facility] V28) (Primary Dx) Discharge Disposition: Home or Self Care 06/05/2025 12:00 PM EDT - 06/05/2025 11:59 PM EDT Hospital Encounter [facility] [address] [phone] Multiple sclerosis ([facility] V24, [facility] V28) (Primary Dx) Discharge Disposition: Home or Self Care 05/08/2025 8:30 AM EDT Office Visit [facility] [address] [phone] Alma German PA Multiple sclerosis ([facility] V24, [facility] V28) (Primary Dx) 05/08/2025 8:00 AM EDT - 05/08/2025 11:59 PM EDT Hospital Encounter [facility] [phone] Multiple sclerosis ([facility] V24, [facility] V28) (Primary Dx) Discharge Disposition: Home or Self Care from Last 3 Months Immunizations Name Administration Dates Next Due Pfizer SARS-CoV-2 COVID-19, mRNA, LNP-S, preservative free 10/18/2021,09/24/2021 Surgical History Surgery Date Site/Laterality Comments NO PAST SURGERIES PROCEDURE:NO PAST SURGERIES Medical History Medical History Date Comments MS (multiple sclerosis) ([facility] V24, [facility] V28) DX:MS (multiple sclerosis) ( [facility]) Arthritis DX:Arthritis Family History Medical [...] Sign Reading Time Taken Comments Blood Pressure 139/87 07/03/2025 11:58 AM EDT Pulse 70 07/03/2025 11:58 AM EDT Temperature 36.1 C (96.9 F) 07/03/2025 11:58 AM EDT Respiratory Rate 17 07/03/2025 11:58 AM EDT Oxygen Saturation 97% 07/03/2025 11:58 AM EDT Inhaled Oxygen Concentration - - Weight 72.6 kg (160 lb) 01/26/2025 9:18 AM EDT Height 167.6 cm (5' 6 ) 08/01/2024 11:49 AM EDT Body Mass Index 25.82 08/01/2024 11:49 AM EDT Plan of Treatment Upcoming Encounters Date Type Department Care Team (Late st Contact Info) Description 08/01/2025 10:00 AM EDT Appointment [facility] [address] [phone] 08/28/2025 8:00 AM EDT Appointment [facility] [address] [phone] 09/25/2025 8:00 AM EST Appointment [facility] [address] [phone] 10/23/2025 8:00 AM EST Appointment [facility] [address] [phone] 10/23/2025 8:30 AM EST Office Visit [facility] [place] [address] [phone] Alma German PA [address] [phone] 11/20/2025 8:00 AM EST Appointment [facility] [address] [phone] 12/18/2025 8:00 AM EST Appointment [facility] [address] [phone] 01/15/2026 8:00 AM EST Appointment [facility] [place] [facility] [address] [phone] 02/12/2026 8:00 AM EDT [facility]ment [facility] [address] [phone] 03/12/2026 8:00 AM EDT Appointment [facility] [place] [facility] [address] [phone] Health Maintenance Due Date Last Done Comments Breast Cancer Screening 1980 Cervical Cancer Screening: Pap Smear 2001 COVID-19 Vaccine (3 - Pfizer risk series) 11/15/2021 10/18/2021, 09/24/2021 Colorectal Cancer Screening: Colonoscopy 10/16/2022 HIV Screening 10/16/2022 Medicare Annual Wellness Visit 10/16/2022 Social Influencers of Health Screening 10/16/2022 DTaP,Tdap,and Td Vaccines (3 - Td or Tdap) 10/25/2023 10/25/2013, 06/20/2002 Depression Screening 11/13/2024 Influenza Vaccine (#1) 2025 09/04/2008 RSV Immunization Adult Patients (1 - 1-dose 75+ series) 2055 MMR Vaccines Aged Out 02/16/2017, 02/14/2011 No [...] age to complete this topic Meningococcal B Vaccine Aged Out No l onger eligible based on patient's age to complete this topic Pneumococcal Vaccine: Pediatrics (0 to 5 Years) and At-Risk Patients (6 to 49 Years) Aged Out No longer eligible based on patient's age to complete this topic RSV Immunization Patients Under 20 months Aged Out No longer eligible based on patient's age to complete this topic Varicella Vaccines Aged Out No longer eligible based on patient's age to complete this topic Procedures Procedure Name Priority Date/Time Associated Diagnosis Comments MANUAL DIFFERENTIAL - SYSMEX WAM Routine 05/08/2025 8:26 AM EDT CBC WITH AUTO DIFFERENTIAL Routine 05/08/2025 8:26 AM EDT CBC AND DIFFERENTIAL Routine 05/08/2025 8:26 AM EDT HEPATIC FUNCTION PANEL Routine 05/08/2025 8:26 AM EDT VITAMIN D 25 HYDROXY Routine 05/08/2025 8:26 AM EDT VITAMIN B12 Routine 05/08/2025 8:26 AM EDT JCV POLYOMA VIRUS ANTIBODY WITH REFLEX TO INHIBITION ASSAY Routine 05/08/2025 8:26 AM EDT Multiple sclerosis (CMS/HCC V24, CMS/HCC V28) HEPATITIS PANEL, ACUTE WITH REFLEX TO CONFIRMATION Routine 11/21/2024 8:46 AM EST Long-term use of immunosuppressant medication Drug therapy from Last 3 Months or Most Recently Relevant to Health Maintenance Results * JCV polyoma virus antibody with reflex to inhibition assay (05/08/2025 8:26 AM EDT) Pathologist [facility] Index Value 0.15 05/13/2025 8:05 AM EDT [facility] JCV Antibody Negative 05/13/2025 8:05 AM EDT [facility] Comment: Index interpretive criteria: <0.20 negative 0.20-0.40 indeterminate >0.40 positive Interpretation Note 05/13/2025 8:05 AM EDT [facility] Comment: INTERPRETATION Negative: Antibodies to JCV not detected. Indeterminate: Low level reactivity detected, see Inhibition Assay result below for the final antibody result. Positive: Antibodies to ANABEL virus (JCV) detected indicating the patient has been exposed to JCV at an undetermined time. The STRATIFY JCV(R) DxSelect(TM) Antibody Test is an enzyme-linked immunosorbent assay (AUGUSTINE) designed to detect JCV antibodies to help identify individuals who have been exposed to the virus. Samples with low level reactivity in the detection assay are retested in a confirmation (inhibition) assay to confirm presence or absense of JCV-specific antibodies. Retrospective analyses of post marketing data from various sources, including observational studies and spontaneous reports obtained worldwide, suggest that the risk of developing PML may be associated with relative levels of serum anti-JCV antibody as measured by anti-JCV antibody index. (1) (1) TYSABRI(natalizumab)US Prescribing Information Interpretation Note 05/13/2025 8:05 AM EDT [facility] Comment: Positive: Antibodies to ANABEL virus (JCV) detected indicating the patient has been exposed to JCV at an undetermined time Negative: Antibodies to JCV not detected Blood Venous blood specimen / Unknown Venipuncture / Unknown 05/08/2025 8:26 AM EDT 05/08/2025 8:26 AM EDT Narrative [facility] - 05/13/2025 8:05 AM EDT Performed at: - [facility] [email or web address] [address] [place] [id number] Corporate Technical Recruiter: Olivia Randolph MD, Phone: [phone] [facility] BLOOD ORDERABLES Final R esult [facility] * (ABNORMAL) Manual differential (05/08/2025 8:26 AM EDT) Neutrophils % 26.0 % LAB HEMETOLOGY METHOD 5 2:53 PM EDT [facility] Lymphocytes % 64.0 % LAB HEMETOLOGY METHOD 5 2:53 PM EDT [facility] Monocytes % 6.0 % LAB HEMETOLOGY METHOD 5 2:53 PM EDT [facility] Eosinophils % 1.0 % LAB HEMETOLOGY METHOD 5 2:53 PM EDT [facility] Basophils % 0.0 % LAB HEMETOLOGY METHOD 5 2:53 PM EDT [facility] Metamyelocytes % 1.0(H) % LAB HEMETOLOGY METHOD 5 2:53 PM EDT [facility] Myelocytes % 3.0(H) % LAB HEMETOLOGY METHOD 5 2:53 PM EDT [facility] Neutrophils Absolute Manual 2.52 1.50 - 7.00 K/mcL LAB HEMETOLOGY METHOD 5 2:53 PM EDT [facility] Lymphocytes Absolute 6.21(H) 1.00 - 5.00 K/mcL LAB HEMETOLOGY METHOD 5 2:53 PM EDT [facility] Monocytes Absolute Manual 0.58 0.20 - 1.00 K/mcL LAB HEMETOLOGY METHOD 5 2:53 PM EDT [facility] Eosinophils Absolute Manual 0.10 0.00 - 0.50 K/mcL LAB HEMETOLOGY METHOD 5 2:53 PM EDT [facility] Basophils Absolute Manual 0.00 0.00 - 0.20 K/mcL LAB HEMETOLOGY METHOD 5 2:53 PM EDT [facility] Metamyelocytes Absolute Manual 0.10(H) 0.00 - 0.00 K/mcL LAB HEMETOLOGY METHOD 5 2:53 PM EDT [facility] Myelocytes Absolute Manual 0.29(H) 0.00 - 0.00 K/mcL LAB HEMETOLOGY METHOD 5 2:53 PM EDT [facility] Rbc Morphology Consistent with indices Consistent with indices, Normal for LAB HEMETOLOGY METHOD 2:53 PM EDT [facility] Platelet Morphology - WAM See Note(A) Normal LAB HEMETOLOGY METHOD 2:53 PM EDT [facility] Comment:PLT: Normal Blood Venous blood specimen / Unknown Venipuncture / Unknown 05/08/2025 8:26 AM EDT 05/08/2025 8:26 AM EDT [facility] LAB BLOOD ORDERABLES Final R esult [facility] [address] [place] [address], * (ABNORMAL) CBC auto differential (05/08/2025 8:26 AM EDT) WBC 9.7 4.8 - 10.8 K/mcL LAB HEMETOLOGY METHOD 05/08/2025 2:53 PM EDT [facility] RBC 4.60 3.80 - 4.80 M/mcL LAB HEMETOLOGY METHOD 05/08/2025 2:53 PM EDT [facility] Hemoglobin 12.4 11.5 - 16.0 g/dL LAB HEMETOLOGY METHOD 05/08/2025 2:53 PM EDT [facility] Hematocrit 38.8 35.0 - 47.0 % LAB HEMETOLOGY METHOD 05/08/2025 2:53 PM EDT [facility] MCV 83.8 79.0 - 98.0 FL LAB HEMETOLOGY METHOD 05/08/2025 2:53 PM EDT [facility] MCH 26.8(L) 27.0 - 32.0 pcg LAB HEMETOLOGY METHOD 05/08/2025 2:53 PM EDT [facility] MCHC 32.0 32.0 - 37.0 g/dL LAB HEMETOLOGY METHOD 05/08/2025 2:53 PM EDT [facility] RDW 14.8 11.0 - 15.0 % LAB HEMETOLOGY METHOD 05/08/2025 2:53 PM EDT [facility] Platelets 241 130 - 400 K/mcL LAB HEMETOLOGY METHOD 05/08/2025 2:53 PM EDT [facility] MPV 11.0 7.0 - 11.0 FL LAB HEMETOLOGY METHOD 05/08/2025 2:53 PM EDT [facility] NRBC 0.2 <1.0 % LAB HEMETOLOGY METHOD 05/08/2025 2:53 PM EDT [facility] NRBC Absolute 0.02 <0.10 K/mcL LAB HEMETOLOGY METHOD 05/08/2025 2:53 PM EDT [facility] Blood Venous blood specimen / Unknown Venipuncture / Unknown 05/08/2025 8:26 AM EDT 05/08/2025 8:26 AM EDT us [facility] LAB BLOOD ORDERABLES Final R esult [facility] [address] [place] [address], * Vitamin D 25 hydroxy (05/08/2025 8:26 AM EDT) Vit D, 25-Hydroxy 51.3 30.0 - 80.0 ng/mL LAB CHEMISTRY METHOD 05/08/2025 4:50 PM EDT [facility] Blood Venous blood specimen / Unknown Venipuncture / Unknown 05/08/2025 8:26 AM EDT 05/08/2025 8:26 AM EDT [facility] Final R esult [facility] [address] [place] [address], [place] [phone] * Vitamin B12 (05/08/2025 8:26 AM EDT) Pathologist [facility] [place] Vitamin B-12 557 250 - 900 pcg/mL LAB CHEMISTRY METHOD 05/08/2025 5:03 PM EDT [facility] Blood Venous blood specimen / Unknown Venipuncture / Unknown 05/08/2025 8:26 AM EDT 05/08/2025 8:26 AM EDT [facility] BLOOD ORDERABLES Final R esult [facility] [address] [place] [address], [place] [phone] * Hepatic function panel (05/08/2025 8:26 AM EDT) [facility] Total Protein 7.0 6.0 - 8.0 g/dL LAB CHEMISTRY METHOD 05/08/2025 5:03 PM EDT [facility] Albumin 3.8 3.2 - 5.0 g/dL LAB CHEMISTRY METHOD 05/08/2025 5:03 PM EDT [facility] Total Bilirubin 1.1 0.0 - 1.4 mg/dL LAB CHEMISTRY METHOD 05/08/2025 5:03 PM EDT [facility] Bilirubin, Direct 0.3 0.0 - 0.3 mg/dL LAB CHEMISTRY METHOD 05/08/2025 5:03 PM EDT [facility] Bilirubin, Indirect 0.8 0.0 - 1.1 mg/dL LAB CHEMISTRY METHOD 05/08[facility]2025 [facility] ([facility] 23 10 - 60 unit/L LAB CHEMISTRY METHOD 05/08/2025 5:03 [facility] AST (SGOT) 15 10 - 42 unit/L LAB CHEMISTRY METHOD 05/08/2025 5:03 PM [facility] Alkaline Phosphatase 45 42 - 121 unit/L LAB CHEMISTRY METHOD 05/08/2025 5:03 PM [facility] Blood Venous blood specimen / Unknown Venipuncture / Unknown 05/08/2025 8:26 AM EDT 05/08/2025 8:26 AM EDT [facility] SCHAFFER LAB BLOOD ORDERABLES Final R esult [facility] [address] [place] [address], [place] [phone] * Hepatitis panel, acute with reflex to confirmation (11/21/2024 8:46 AM EST) Hepatitis B Surface Ag Negative Negative LAB CHEMISTRY METHOD 11/21/2024 11:42 AM EST [facility] Hepatitis A Antibody IgM Negative Negative LAB CHEMISTRY METHOD 11/21/2024 11:42 AM EST [facility] Hep B Core IgM Negative Negative LAB CHEMISTRY METHOD 11/21/2024 11:42 AM EST [facility] Hepatitis C Antibody Negative Negative LAB CHEMISTRY METHOD 11/21/2024 11:42 AM EST [facility] Blood Venous blood specimen / Unknown Venipuncture / Unknown 11/21/2024 8:46 AM EST 11/21/2024 8:47 AM EST us Chico Acosta MD LAB BLOOD ORDERABLES Page [email or web address] Result [facility] [address] [place] [address], [place] [phone] from Last 3 Months or Most Recently Relevant to Health Maintenance Insurance MEDICARE [place]ICAID [place] Care Teams Transportation Maintenance Worker Relationship Specialty Start Date End Date Chet Mantilla MD [address] [place] [address] PCP - General Internal Medicine 08/31/22
--- OUTSIDE RECORDS SUMMARY | 2025-07-31 10:33 | XMS_ITS ---
Author Name [facility] Organization Unknown History of Medication Use Medication Directions Dispensed Refills Start Date End Date Stat us baclofen (LIORESAL) 5 MG tablet Take 1 tablet (5 mg total) by mouth 3 (three) times a day. 11/15/2023 active sodium chloride 0.9% bolus (NS) 500 mL 500 mL, Intravenous, at 500 mL/hr, Once, On Mon08/23/23 at 1115, For 1 doseAdminister after natalizumab (TYSABRI) infusion completed. 08/23/2023 completed ergocalciferol (VITAMIN D2) capsule 26525 units Take 1 capsule (50,000 Units total) by mouth once a week. 03/14/2023 active gabapentin (NEURONTIN) 100 MG capsule Take 1 capsule (100 mg total) by mouth. 06/21/2022 active etonogestrel (Nexplanon) 68 MG IMPL subcutaneous implant 68 mg by Subdermal route once. active folic acid (FOLVITE) tablet 1 mg Take 1 tablet (1 mg total) by mouth daily. active methotrexate 2.5 MG tablet Take 5 tablets (12.5 mg total) by mouth once a week. active Problems Problem Status Onset Date Problem Type Date of Resoluti on Source Multiple sclerosis active 2022-11-16 ProblemAct [id number]
--- OUTSIDE RECORDS SUMMARY | 2025-07-31 10:33 | XMS_ITS | Clinical Summary ---
Author Organization [facility] Address [address] [place] [address] Care Team Providers Care Metalizing Supervisor Name Role Phone Chet Mantilla MD Primary Care Provider [phone] Allergies No known active allergies Medications Medication Sig Dispensed Refills Start Date End Date Status methotrexate 2.5 MG tablet Take 5 tablets (12.5 mg total) by mouth once a week. 0 Active folic acid (FOLVITE) tablet 1 mg Take 1 tablet (1 mg total) by mouth daily. 0 Active [place]-3 Fatty Acids (Fish Oil) 1000 MG CAPS Take by mouth. 0 Active etonogestrel (Nexplanon) 68 MG IMPL subcutaneous implant 68 mg by Subdermal route once. 0 Active ergocalciferol (VITAMIN D2) capsule 80828 units Take 1 capsule (50,000 Units total) [...] 88 08/29/2024 11:41 AM EDT Temperature 36.3 C (97.3 F) 08/29/2024 11:41 AM EDT Respiratory Rate 18 08/29/2024 11:41 AM EDT [...] - Td or Tdap) 10/25/2023 10/25/2013, 06/20/2002 Colon Cancer Screening (Colonoscopy) 2025 COVID-19 Vaccine (2024-2 6 season) 2025 10/18/2021, 09/24/2021 Influenza Vaccine (#1) 2025 09/04/2008 Pneumococcal Vaccine Aged Out No long er eligible based on patient's age to complete this topic RSV Ped < 20 months Aged Out No longe r eligible based on patient's age to complete this topic Care Teams Metalizing Supervisor Relationship Specialty Start Date End Date Chet Mantilla MD [address] [place] [phone] PCP - General Internal Medicine 08/31/22
== END 2025-07-31 09:39 | disposition home or self-care (01) ==
LOC: HO.RHES 09:06
PROVIDERS: PCP Nurse Practitioner Family; Visit Provider Internal Medicine Rheumatology
DX: M08.80 Other juvenile arthritis, unspecified site (principal); Z79.899 Other long term (current) drug therapy; M17.0 Bilateral primary osteoarthritis of knee; M25.512 Pain in left shoulder; G89.29 Other chronic pain
CPT/HCPCS: 99214; G2211

== ENCOUNTER 2025-07-31 09:06 | Outpatient (REF) | payer MEDICARE, MEDICAID, SELFPAY ==
[2025-07-31 13:47] LABS: Hematocrit 38.9 % (37.0-47.0); Hemoglobin 12.2 g/dl (12.0-16.0); Imm Gran Abs Auto 0.03 X10*3/uL (0.00-0.03); Imm Gran Pct Auto 0.4 % (0.0-0.4); Lymphocytes Absolute Auto 5.0 X10*3/uL (1.2-4.9); MANUAL DIFF FLAG SCAN; Mean Corpuscular HGB Conc 31.4 g/dl (31.0-35.0); Mean Corpuscular Hemoglobin 25.8 pg (27.0-33.0); Mean Corpuscular Volume 82.2 fL (80.0-98.0); NRBC Abs Auto 0.050 X10*3/uL (0.0-0.012); NRBC Pct Auto 0.7 /100WBC (0.0-0.2); Platelet Count 214 X10*3/uL (160-400); Red Blood Count 4.73 X10*6/uL (4.20-5.50); SCAN SMEAR FLAG 1; White Blood Count 7.7 X10*3/uL (4.8-10.8)
[2025-07-31 14:10] LABS: Alanine Aminotransferase 14 U/L (0-31); Aspartate Amino Transferase 24 U/L (5-31); Estimated Glomerular Filt Rate > 60
== END 2025-07-31 09:07 | disposition home or self-care (01) ==
LOC: HO.HKASLDS 09:06
PROVIDERS: PCP Nurse Practitioner Family; Visit Provider Internal Medicine Rheumatology
DX: M08.80 Other juvenile arthritis, unspecified site (principal); M17.0 Bilateral primary osteoarthritis of knee; M25.512 Pain in left shoulder; G89.29 Other chronic pain; Z51.81 Encounter for therapeutic drug level monitoring; Z79.631 Long term (current) use of antimetabolite agent; Z79.899 Other long term (current) drug therapy
CPT/HCPCS: 36415; 82565; 84450; 84460; 85025; 85652; 86140; 99212